=== PATIENT | male | born 1960 | race Two or more races ===

== ENCOUNTER → 2022-05-16 07:50 | Outpatient (BNVA) | payer MEDICARE, MEDICAID, SELFPAY | PROVIDERS: PCP Internal Medicine; Visit Provider Internal Medicine Rheumatology | DX: M17.11 Unilateral primary osteoarthritis, right knee (principal); M25.561 Pain in right knee; M77.11 Lateral epicondylitis, right elbow; R20.0 Anesthesia of skin | CPT/HCPCS: 99202 ==

== ENCOUNTER 2022-09-19 09:04 | Outpatient (REF) | payer MEDICARE, MEDICAID, SELFPAY ==
--- NOTE | ~2022-09-19 | XR_ITS ---
EXAMINATION: XR HAND, BILATERAL CLINICAL INFORMATION: Anesthesia of skin COMPARISON: None. TECHNIQUE: 3 views of each hand FINDINGS: RIGHT: Bone alignment is normal. No fracture or dislocation. Arthritis at the 1st RETIREMENT and trapezoid trapezium scaphoid joints. Periarticular osteopenia. Normal soft tissues. LEFT: Bone alignment is normal. No fracture or dislocation. Arthritis at the trapezoid trapezium scaphoid and 1st RETIREMENT joints. Small cysts in the carpal bones and ulnar styloid. Periarticular osteopenia. Normal soft tissues. XR/XR hand LT 2V IMPRESSION: Bilateral arthritis and periarticular osteopenia. Cysts in the left carpal bones. Inflammatory arthritis should be considered.
--- NOTE | ~2022-09-19 | XR_ITS ---
EXAMINATION: XR HAND, BILATERAL CLINICAL INFORMATION: Anesthesia of skin COMPARISON: None. TECHNIQUE: 3 views of each hand FINDINGS: RIGHT: Bone alignment is normal. No fracture or dislocation. Arthritis at the 1st PRISON and trapezoid trapezium scaphoid joints. Periarticular osteopenia. Normal soft tissues. LEFT: Bone alignment is normal. No fracture or dislocation. Arthritis at the trapezoid trapezium scaphoid and 1st PRISON joints. Small cysts in the carpal bones and ulnar styloid. Periarticular osteopenia. Normal soft tissues. XR/XR hand RT 2V IMPRESSION: Bilateral arthritis and periarticular osteopenia. Cysts in the left carpal bones. Inflammatory arthritis should be considered.
--- NOTE | ~2022-09-19 | XR_ITS ---
EXAMINATION: XR CERVICAL SPINE CLINICAL INFORMATION: Neck pain COMPARISON: None available. TECHNIQUE: 6 views of the cervical spine, inclusive of bilateral oblique and swimmer's views, were obtained. FINDINGS: Bone alignment is normal. No fracture or dislocation. Degenerative spondylosis and degenerative disc disease at C5-C6 and C6-C7. Right-sided neuroforaminal narrowing at C4-C5, C5-C6 and C6-C7. Left-sided neuroforaminal narrowing at C5-C6 and C6-C7. Normal prevertebral soft tissues. XR/XR cervical spine min 6V IMPRESSION: Degenerative changes.
== END 2022-09-19 09:05 | disposition home or self-care (01) ==
LOC: HO.XRAY 09:04
PROVIDERS: PCP Internal Medicine; Visit Provider Nurse Practitioner Family
DX: R20.0 Anesthesia of skin (principal); M47.812 Spondylosis without myelopathy or radiculopathy, cervical region; M54.2 Cervicalgia
CPT/HCPCS: 72052; 73120; 99202

== ENCOUNTER 2022-11-07 11:35 | Outpatient (REF) | payer MEDICARE, MEDICAID, SELFPAY ==
--- NOTE | 2022-11-07 08:45 | EMG_ITS ---
Left median and ulnar motor and sensory studies were performed. Left radial sensory study was performed and paraspinal muscles were tested with a needle. IMPRESSION: 1. Mild left median neuropathy across carpal tunnel. 2. Mild left ulnar neuropathy across cubital tunnel. MD REDDY Zamorano/ROSALINDA / [id number] MTDD
== END 2022-11-07 11:36 | disposition home or self-care (01) ==
LOC: HO.NEURO 11:35
PROVIDERS: PCP Internal Medicine; Visit Provider Nurse Practitioner Family
DX: R20.0 Anesthesia of skin (principal); G62.9 Polyneuropathy, unspecified
CPT/HCPCS: 95886; 95909

== ENCOUNTER 2023-02-06 08:06 | Outpatient (AMB) | payer MEDICARE, MEDICAID, SELFPAY ==
--- NOTE | 2023-02-06 08:17 | A.OFFVIS_ITS ---
Intake Vital Signs 02/06/23 08:31 Height 5 ft 11 in Weight 104 lb 9 oz BMI 14.6 BP 120/76 Blood Pressure Location Rt brachial Position Sitting Pulse 68 Temp 97.2 F Temp Source Skin Pulse Oximetry (%) 97 Oxygen Delivery Method Room Air Intake Visit Reasons: Bl Hand pain Intake Note: New patient here for graham hand pain. Using wrist braces at night. No prior rheumatology vists. 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 I had seen him last in May. He eventually had nerve conduction studies done in October. The data from Neurology indicates the left upper extremity was studied and he concurs with that. However the conclusion was that he had right carpal tunnel and right ulnar neuropathy. We are trying to find out if the studies were mixed up or the patient's recollection is inaccurate. He did have a lateral epicondylar injection in the right elbow last summer. That did seem to help somewhat but he still having some elbow pain on the right. Most of this pain now seems to be on the medial of the elbow.. 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 The knees are not bothering him that much currently. [facility] Medical History Chronic pain of right knee Depression Essential hypertension Glaucoma Surgical History Hx of colonoscopy Family History (Updated 02/06/23 @ 08:34 by MELIA Stoddard) Sister Diabetes Arthritis Brother Arthritis Mother Breast cancer Father No problems noted. 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 Denis/Lymph Details: Negative for excessive bruising or bleeding. Physical Exam Vital Signs: Last Vital Signs Temp 97.2 F 02/06/23 08:31 Pulse 68 02/06/23 08:31 BP 120/76 02/06/23 08:31 Pulse Ox 97 02/06/23 08:31 Oxygen Delivery Method Room Air 02/06/23 08:31 BMI result Body Mass Index 14.6 APPEARANCE: Patient in no acute distress EXTREMITIES: No edema, no calf tenderness, normal peripheral pulses. JOINT EXAM: Cervical Spine:.? Some decrease in the full range of motion but no pain or tenderness. Thoracic Spine:.? No scoliosis.? No tenderness on palpation. Lumbar Spine:.? Alignment normal.? Mild pain with extremes of flexion.? No tenderness. Chest Wall:.? No tenderness, swelling, increased warmth or erythema. Hands:.? Normal pain-free range of motion without tenderness, swelling, increased warmth or erythema.? No flexor tendon triggering, thenar atrophy or sensory loss. Wrists:.? Normal pain-free range of motion without tenderness, swelling, increas ed warmth or erythema.? Positive Phalen's test bilaterally. Elbows:? Right:? Mild pain with extremes of normal flexion and attempts at full extension.? He lacks about 5 degrees of full extension.? There is no tenderness or swelling over the joint space. He does have some mild tenderness on the medial epicondyle and minimal if any tenderness over the lateral epicondyle.? Left:? Normal pain-free range of motion without tenderness, swelling, increased warmth or erythema. Shoulders:.?? Full range of motion with slight posterior discomfort at the extremes of normal range of motion. No tenderness, weakness, swelling, increased warmth or erythema. Hips:.? Full range of motion without pain. Hip bursa:.? No tenderness. Knees:.?? Right:? Mild patellofemoral crepitus and pain at the extremes of normal flexion extension.? Mild to moderate medial compartment tenderness without effusion, redness or warmth.? Left:? Mild patellofemoral crepitus but pain-free range of motion.? There is some slight medial tenderness without effusion, soft tissue swelling, increased warmth or erythema.? Ankles:.? Normal pain-free range of motion without tenderness, swelling, increased warmth or erythema. Feet:.? Normal pain-free range of motion without tenderness, swelling, increased warmth or erythema. Tender points:.? No tenderness to digital palpation at the occiput, trapezius, second rib, lateral epicondyle, knees, greater trochanter and gluteal area bilaterally. Office Procedures Joint Injection/Drain Joint Injection/Drain Injected: 40 mg of, Kenalog, with 0.5 mL of and 1% plain lidocaine Coding Details: The right medial elbow region was prepped with ChloraPrep and alcohol. Under a topical ethyl chloride spray the medial epicondylar region was injected with 40 mg of triamcinolone and 0.5 cc of 1% lidocaine. The patient tolerated the procedure without any acute adverse effects. Additional procedure code (CPT) needed Results Reviewed Results Reviewed: [place] [id number] XRay Report Signed Patient: Hussein Tarango MR#: [id number] : 1960 Acct:[id number] Age/Sex: 62 / M ADM Date: 09/19/[address]: Raegan WATERMAN Ordering Physician: Raegan Rankin Date of Service: 09/19/22 Procedure(s): XR hand RT 2V Accession Number(s): [id number] cc: Raegan Rankin~ EXAMINATION: XR HAND, BILATERAL CLINICAL INFORMATION: Anesthesia of skin? COMPARISON: None.? TECHNIQUE: 3 views of each hand? FINDINGS: RIGHT: Bone alignment is normal. No fracture or dislocation. Arthritis at the 1st GROUP HOME and trapezoid trapezium scaphoid joints. Periarticular osteopenia. Normal soft tissues. LEFT: Bone alignment is normal. No fracture or dislocation. Arthritis at the trapezoid trapezium scaphoid and 1st GROUP HOME joints. Small cysts in the carpal bones and ulnar styloid. Periarticular osteopenia. Normal soft tissues.? XR/XR hand RT 2V IMPRESSION: Bilateral arthritis and periarticular osteopenia. Cysts in the left carpal bones. Inflammatory arthritis should be considered.? Dictated By: Nancy Troy MD [facility] MEDICAL Imaging Result Report Patient: Hussein Tarango Date of Service: 08/14/21 ? ? Patient Gender: Male Ordering Provider: Luis Jimenez : 1960 ? ? ? Final X-RAY EXAM OF ELBOW, COMPLETE Exam Date: 08/14/2021 3:29 PM Ordering Diagnosis: Right elbow pain ? HISTORY: elbow pain chronic ? TECHNIQUE: 3 viewsof the right elbow ? COMPARISON: Right elbow radiograph from 12/15/2019 ? FINDINGS: The elbow joint is well maintained. No fracture or dislocation is seen. There is no joint effusion present. Soft tissues are unremarkable. ? IMPRESSION IMPRESSION: No fracture or dislocation of the right elbow. ? Reading Radiologist: Electronically signed by: Robbin Horvath MD o Assessment & Plan Assessment & Plan (1) Medial epicondylitis, right elbow: Code(s): M77.01 - Medial epicondylitis, right elbow (2) Osteoarthritis of hands, bilateral: Comment: mostly at thumbs Code(s): M19.041 - Primary osteoarthritis, right hand; M19.042 - Primary osteoarthritis, left hand (3) Bilateral hand numbness: Comment: 09/2022 EMG: mild ulnar and median neuropathy - quesrion whether the right arm or left arm was studied Code(s): R20.0 - Anesthesia of skin Plan Today the symptoms at the elbow look more like a right medial epicondylitis. Local corticosteroid injection there is an option. We reviewed potential side effects with such injection. He tolerated the lateral epicondylar injection last year without any difficulty.The right medial elbow region was prepped with ChloraPrep and alcohol. Under a topical ethyl chloride spray the medial epicondylar region was injected with 40 mg of triamcinolone and 0.5 cc of 1% lidocaine. The patient tolerated the procedure without any acute adverse effects. He will see how this works out. He could also pursue a surgical treatment if symptoms do not improve. He seems to have bilateral hand numbness. I cannot really interpret the nerve conduction studies. The data from the office indicates they studied the left upper extremity but the conclusion was that he had right carpal tunnel and cubital tunnel neuropathies.. We will try to clarify this. Additional treatment for the hand numbness may include surgical treatment either cubital tunnel release and/or carpal tunnel release depending on electrical studies. He will get back to us if the numbness symptoms continue to bother him. He may need repeat nerve conduction studies to clarify the findings. Orders: Orders AMB Joint Injection/Aspiration Today M77.01 - Medial epicondylitis, right elbow Coding Level of Care Code Est Pt Level 3 (46195) Diagnoses Medial epicondylitis, right elbow M77.01 Osteoarthritis of hands, bilateral M19.041; M19.042 Bilateral hand numbness R20.0
[2023-02-06 08:31] VITALS: BP 120/76; PULSE 68; TEMP 36.2; O2SAT 97; BMI 14.6
== END 2023-02-06 09:15 | disposition home or self-care (01) ==
PROVIDERS: PCP Internal Medicine; Visit Provider Internal Medicine Rheumatology
DX: M77.01 Medial epicondylitis, right elbow (principal); M19.041 Primary osteoarthritis, right hand; M19.042 Primary osteoarthritis, left hand; R20.0 Anesthesia of skin
CPT/HCPCS: 99213

== ENCOUNTER → 2023-02-06 08:06 | Outpatient (BNVA) | payer MEDICARE, MEDICAID, SELFPAY | PROVIDERS: PCP Internal Medicine; Visit Provider Internal Medicine Rheumatology | DX: M77.01 Medial epicondylitis, right elbow (principal); M19.041 Primary osteoarthritis, right hand; M19.042 Primary osteoarthritis, left hand; R20.0 Anesthesia of skin | CPT/HCPCS: 20605; 99212 ==

== ENCOUNTER 2023-03-26 09:18 | Outpatient (AMB) | payer MEDICARE, MEDICAID, SELFPAY ==
--- NOTE | 2023-03-26 09:28 | MHC.OFFVIS ---
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 States he has been experiencing numbness and tingling for the la st 3 months. States its worse at night and with gripping movement. States he was seen with his PCP who Rx'd him brace and seems to help a little. Reports his left is worse than his right at the moment. Denies O.T or past injection in hands. No EMG done. Allergies No Known Allergies Allergy (Verified 03/26/23 09:34) Medication List - Last Reconciled 03/26/23 by Marcia Gaston MD arm brace (Wrist Brace Medium) As directed atorvastatin 20 mg PO DAILY docusate sodium 100 mg PO DAILY escitalopram oxalate 10 mg PO DAILY gabapentin 300 mg PO BEDTIME 30 days hydrochlorothiazide 25 mg PO DAILY omeprazole 40 mg PO DAILY quetiapine 25 mg PO BEDTIME risperidone 3 mg PO QAM timolol maleate 0.5% 0 drps ophthalmic (eye) HPI HPI Comments History of Present Illness Details Patient has seen Dr. Hatch recently for elbow pain. Received injection which helped. Question of CTS. EMG was done by Dr. Keen last October, read as mild left CTS and left UNE. On my review of data, there is normal median motor latency and amplitude and only mildly slow CV. Patient complains more of numbness than pain, on most 2nd-4th fingers, especially when driving or holding his will. Since he has been wearing night splints, it has improved. Left is worse. Has not noticed atrophy. [facility] Medical History (Updated 03/26/23 @ 10:03 by Marcia Gaston MD) Carpal tunnel syndrome on both sides Chronic pain of right knee Glaucoma Essential hypertension Depression Surgical History Hx of colonoscopy Family History (Updated 02/06/23 @ 08:34 by MELIA Stoddard) Sister Diabetes Arthritis Brother Arthritis Mother Breast cancer Father No problems noted. 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 MSK: Inspection reveals appropriate head and neck positioning. No pain with palpation over the neck musculature. Cervical ROM was full. Spurling's sign negative. Bilateral shoulder ROM WNL. No ligamentous laxity or crepitance. No increased effusion. Hawkin's test is negative. No intrinsic hand weakness noted. No atrophy noted. Jaylyn test negative. Carpal compression test positive bilateral. Tinel sign negative. Strength is 5/5 in all muscle groups tested. No increased tone noted. Neurological: Neurologic examination of the upper and lower extremities was nonfocal with intact sensation, muscle stretch reflexes and without focal motor deficits . Ramey?s negative bilaterally. Gait is non-antalgic without loss of balance. Results Reviewed Results Reviewed: I independently reviewed the results of the following: EMG as discussed above I reviewed records from the following: Rheumatology Assessment & Plan Assessment & Plan (1) Carpal tunnel syndrome on both sides: Code(s): G56.03 - Carpal tunnel syndrome, bilateral upper limbs Plan Clinical diagnosis of CTS bilateral. EMG last May documented at least mild left CTS. Wrist splints help. Continue with wrist splints. Watch out for development of pain or atrophy. Would recommend repeat EMG 6 months after last if worsening. Assessment and plan discussed with patient, and patient was agreeable. All questions were answered thoroughly. Marcia Gaston MD, GILDARDO Board Certified, [place] Board of Physical Medicine and Rehabilitation (ABPMR) Board Certified, [place] Board of Electrodiagnostic Medicine (ABEM) Coding Level of Care Code New Pt Level 3 (44712) Diagnoses Carpal tunnel syndrome on both sides G56.03
[2023-03-26 09:33] VITALS: BMI 28.4
== END 2023-03-26 09:57 | disposition home or self-care (01) ==
PROVIDERS: PCP Internal Medicine; Visit Provider Physical Medicine & Rehabilitation
DX: G56.03 Carpal tunnel syndrome, bilateral upper limbs (principal)
CPT/HCPCS: 99203

== ENCOUNTER → 2023-03-26 09:18 | Outpatient (BNVA) | payer MEDICARE, MEDICAID, SELFPAY | PROVIDERS: PCP Internal Medicine; Visit Provider Physical Medicine & Rehabilitation ==

== ENCOUNTER 2024-04-03 13:12 | Outpatient (AMB) | payer MEDICARE, MEDICAID, SELFPAY ==
--- NOTE | 2024-04-03 13:14 | MHC.OFFWIV ---
Intake Vital Signs 04/03/24 13:16 Height 5 ft 11 in Weight 235 lb BMI 32.8 BP 136/86 Blood Pressure Location Lt brachial Position Sitting Pulse 114 H Pulse Source Pulse Oximeter Temp 98.8 F Temp Source Oral Pulse Oximetry (%) 94 Oxygen Delivery Method Room Air Intake Visit Reasons: EP-Lt foot sore Intake Note: Pt is here today c/o Lt foot sore ?ingrown fingernail Patient Tobacco Use Status: Never used Tobacco Allergies No Known Allergies Allergy (Verified 04/03/24 13:16) HPI HPI Comments History of Present Illness Details He presents to office with a few days of L foot/toe He said pain to L top of foot and 1-3 digits He has had nails cut by podiatry in past which helps but unable to cut toes himself Worse with walking No soaks or medicine used for relief No fever or chills Pain level at rest is minimal slight States that he has diabetes (doesn't check sugars) with hx of neuropathy He said no longer taking gabapentin (he said made him out of it) [facility] Medical History (Updated 04/03/24 @ 13:46 by Laura Machado PA-C) Carpal tunnel syndrome on both sides Chronic pain of right knee Glaucoma Essential hypertension Depression Surgical History Hx of colonoscopy Family History (Updated 02/06/23 @ 08:34 by MELIA Cisneros) Sister Diabetes Arthritis Brother Arthritis Mother Breast cancer Father No problems noted. 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 Speaking full sentences. Skin: Warm dry throughout. Minimal edema to dorsal aspect L foot near distal 1-3 metatarsal bones. No erythema or ecchymosis No FB to plantar aspect of foot Long toe nails noted to digits 1-3 L foot. No digit erythema or edema noted Respiratory: No respiratory distress Cardiac: DP pulse intact L foot MSK:+ tenderness to palpation dorsal aspect L foot along distal 1-3 metatarsal bones. Slight ttp L 3rd digit on foot. + movement all digits L foot Neurology: A/O. No aphasia or facial droop. Gait without abnormality Psych: Good mood and affect Assessment & Plan Assessment & Plan (1) Nail overgrowth: Code(s): L60.2 - Onychogryphosis Plan: podiatry referral provided. No nail trimmers in office (2) Foot pain, left: Code(s): M79.672 - Pain in left foot Plan: no fb seen Pt declined xray as no hx trauma and low concern fx Prednisone for inflammation, MLD arthritis flare Avoid alcohol, nsaids with medicine F/u pcp and pdoatry Pt gave verbal understanding and had no additional questions or concerns at this time Orders: Referrals Podiatry Referral L60.2 - Onychogryphosis Medications: New prednisone 40 mg (2 x 20 mg) PO DAILY 8 tabs 0RF 4 days Coding Level of Care Code Est Pt Level 3 (40416) Diagnoses Nail overgrowth L60.2 Foot pain, left M79.672
[2024-04-03 13:16] VITALS: BP 136/86; PULSE 114; TEMP 37.1; O2SAT 94; BMI 32.8
== END 2024-04-03 13:41 | disposition home or self-care (01) ==
PROVIDERS: PCP Internal Medicine; Visit Provider Physician Assistant
DX: L60.2 Onychogryphosis (principal); M79.672 Pain in left foot

== ENCOUNTER → 2024-04-03 13:12 | Outpatient (BNVA) | payer MEDICARE, MEDICAID, SELFPAY | PROVIDERS: PCP Internal Medicine; Visit Provider Physician Assistant | DX: L60.2 Onychogryphosis (principal); M79.672 Pain in left foot | CPT/HCPCS: 99212 ==

== ENCOUNTER 2024-07-28 08:00 | Outpatient (AMB) | payer MEDICARE, MEDICAID, SELFPAY ==
--- OUTSIDE RECORDS SUMMARY | 2024-07-28 08:02 | XMS_ITS | Clinical Summary ---
Author Organization [facility] Address [address] [place] [address] Care Team Providers Care Consultant Name Role Phone GibsonBernice CARLOS Primary Care Provider [phone] Source Comments PLEASE NOTE, if this patient is a minor, it may be UNLAWFUL to discuss sensitive information that is contained in these records (such as FAMILY PLANNING, MENTAL HEALTH or SUBSTANCE ABUSE) with the minor patient's parent or other person without the patient's specific authorization.[facility] Allergies No known active allergies Medications risperiDONE (RISPERDAL) 3 mg tablet Take 3 mg by mouth every evening. Active timolol (BETIMOL) 0.5 % ophthalmic solution 1 Drop 2 (two) times daily. Active Fenofibrate Nanocrystallized (TRICOR) 48 mg tabIndications:High triglycerides Take 1 Tab by mouth once daily. 30 Tab 3 04/19/20 14 Active diclofenac (VOLTAREN) 75 mg TAKE 1 TABLET BY MOUTH TWICE A DAY 60 Tab 3 07/20/19 15 Active triamterene-hydrochl orothiazide (DYAZIDE) 37.5-25 mg per capsule TAKE 1 CAPSULE BY MOUTH EVERY MORNING FOR HYPERTENSION 30 Cap 3 07/20/19 15 Active atorvastatin (LIPITOR) 20 mg tabletIndications:HL D (hyperlipidemia) Take 1 Tab by mouth once daily. 30 Tab 2 11/01/19 15 Active Active Problems Problem Noted Date Diagnosed Date Elevated liver enzymes 07/20/2014 High triglycerides 04/19/2014 Seasonal allergic conjunctivitis 11/30/2013 Residual type schizophrenic disorder, in remissi on 09/07/2013 HTN (hypertension) 09/07/2013 HLD (hyperlipidemia) 09/07/2013 Glaucoma (increased eye pressure) 09/07/2013 Family History Medical History Relation Name Comments Arthritis Mother step mom Asthma Mother step mom Cancer Mother step mom breast Heart Problems Mother step mom Stroke Mother step mom Relation Name Status Comments Mother step mom Alive Social History Tobacco Use Types Packs/Day Years Used Date Smoking Tobacco: Never Smokeless Tobacco: Never Alcohol Use Standard Drinks/Week Comments Yes 0 (1 standard drink = 0.6 oz pur e alcohol) beer, once every two month 3-4 Sex and Gender Information Value Date Recorded Sex Assigned at Not on file Legal Sex Male 12:37 PM PST Gender Identity Not on file Sexual Orientation Not on file Last Filed Vital Signs Vital Sign Reading Time Taken Comments Blood Pressure 118/79 08/23/2014 10:49 AM EDT Pulse 68 08/23/2014 10:49 AM EDT Temperature 36 ??C (96.8 ??F) 08/23/2014 10:49 AM EDT Respiratory Rate 18 08/23/2014 10:49 AM EDT Oxygen Saturation - - Inhaled Oxygen Concentration - - Weight 97.5 kg (215 lb) 09/28/2014 10:54 AM EDT Height 180.3 cm (5' 11 ) 09/28/2014 10:54 AM EDT Body Mass Index 29.99 09/28/2014 10:54 AM EDT Plan of Treatment Not on file Insurance [place] Member Subscriber Plan / Payer (Ef fective 2013-Present) Name:Hussein Tarango Relation to Subscriber:Self Name:Hussein Tarango Payer ID:[id number] Group ID:Not on file Type:Medicaid Address: [address] [address] [place]ARE - [place] Care Teams Consultant Relationship Specialty Start Date End Date Bernice Gibson NP [phone] [place] [address] PCP - General Internal Medicine 11/22/14
--- OUTSIDE RECORDS SUMMARY | 2024-07-28 08:02 | XMS_ITS | Clinical Summary ---
Author Organization [address] [facility] Address [address] [place] [address] Phone Care Team Providers Care Marble Cleaner Name Role Phone Luis Jimenez MD Primary Care Provider [phone] Allergies No known active allergies Medications acetaminophen (TYLENOL) 500 mg tablet TAKE 2 TABLETS BY MOUTH 3 TIMES DAILY NEEDED FOR PAIN. 1 Active atorvastatin (LIPITOR) 20 mg tablet TAKE 1 TABLET BY MOUTH AT BEDTIME. 4 Active diclofenac (VOLTAREN) 1 % topical gel APPLY 4 G TOPICALLY 4 TIMES A DAY 4 Active docusate sodium (COLACE) 100 mg capsule TAKE 1 CAPSULE BY MOUTH EVERY DAY 4 Active hydroCHLOROthia zide (HYDRODIURIL) 25 mg tablet TAKE 1 TABLET BY MOUTH EVERY DAY 4 Active omeprazole (PriLOSEC) [address] capsule TAKE 1 CAPSULE BY MOUTH EVERY DAY 4 Active risperiDONE (RisperDAL) 3 mg tablet Take 1 Tablet by mouth daily. 3 Active timolol (TIMOPTIC) 0.25 % ophthalmic solution 1 gtt ou bid Active doxycycline (ADOXA) 100 mg tablet Take 1 Tablet by mouth 2 times daily for 7 days. Active Active Problems Problem Noted Date Diagnosed Date Depression 04/13/2024 Essential hypertension, benign 04/13/2024 Glaucoma 04/13/2024 High cholesterol 04/13/2024 Controlled type 2 diabetes m ellitus without complication, without long-term current use of insulin 09/30/2023 Gastroesophageal reflux disease without esophagi tis 09/30/2023 Obese 12/10/2010 Encounters Date Type Department Care Team Description 05/20/2024 2:45 PM EST Office Visit Orthopedic Surgery - [place] [address] [place] [id number] Alexi Valdez DPM Controlled type 2 diabetes with neuropathy (CMS/HCC) (Primary Dx); Pain in toes of both feet; Hammertoes of both feet; Dermatophytosis, nail from Last 3 Months Immunizations Name Administration Dates Next Due Influenza Quadravalent, MDCK , 0.5ml, preservative free (Flucelvax) 6mo and older 03/14/2023,08/14/2021 Influenza trivalent, 0.5mL, preservative free (Fluarix; FluLaval; Fluzone) ages 6mo and older (Afluria) 3 years and older 03/02/2019,04/19/2018,02/20/2016,2014,02/22/2013,06/30/2012,06/14/2011,1 06/24/2009 Tdap Tetanus diptheria acell ular pertussis (Boostrix; Adacel) 7yo and older 11/15/2011 Zoster recombinant (Shingrix ) 19yo and older 05/06/2020 Surgical History Surgery Date Site/Laterality Comments COLONOSCOPY 2012 PROCEDURE: HI COLONOSCOPY FLX DX W/COLLJ SPEC WHEN PFRMD; COMMENT: normal OTHER SURGICAL HISTORY ?2007 PROCEDURE: HI EXPLORATORY LAPAROTOMY CELIOTOMY W/WO BIOPSY SPX; COMMENT: spleen injury Medical History Medical History Date Comments Glaucoma DX:Glaucoma Essential hypertension, benign D X:Essential hypertension, benign High cholesterol DX:High cholest marco antonio Depression DX:Depression Obese 12/10/2010 DX:Obese Family History Medical History Relation Name Comments Diabetes Sister 1 Relation Name Status Comments Sister 1 Sister 2 Social History Tobacco Use Types Packs/Day Years Used Date Smoking Tobacco: Never Smokeless Tobacco: Never Alcohol Use Standard Drinks/Week Comments Yes 0 (1 standard drink = 0.6 oz pur e alcohol) Sex and Gender Information Value Date Recorded Sex Assigned at Not on file Legal Sex Male 12:31 PM EST Gender Identity Not on file Sexual Orientation Not on file Obstetrics History Last Filed Vital Signs Vital Sign Reading Time Taken Comments Blood Pressure 112/78 04/06/2024 2:54 PM EDT Pulse 88 04/06/2024 2:54 PM EDT Temperature - - Respiratory Rate - - Oxygen Saturation - - Inhaled Oxygen Concentration - - Weight 107 kg (236 lb) 05/20/2024 1:55 PM EST Height 182.9 cm (6') 04/12/2024 10:59 AM EDT Body Mass Index 32.01 04/12/2024 10:59 AM EDT Plan of Treatment Upcoming Encounters Date Type Department Care Team (Late st Contact Info) Description 09/02/2024 2:45 PM EDT Office Visit Orthopedic Surgery - [place] [id number] [phone] Alexi Valdez DPM [address] [address] 10/19/2024 3:45 PM EDT Office Visit Adult Medicine [facility] [address] [place] [address] Luis Jimenez MD [address] [place] [id number] Health Maintenance Due Date Last Done Comments Pneumococcal Vaccine: Pediatrics (0 to 5 Years) and At-Risk Patients (6 to 64 Years) (1 of 2 - PCV) 1966 RSV Immunization Patients 60+ Years Old (1 - Risk 60-74 years 1-dose series) 2020 DTaP,Tdap,and Td Vaccines (2 - Td or Tdap) 11/14/2021 11/15/2011 Colorectal Cancer Screening: Colonoscopy 05/25/2022 Depression Screening 05/25/2022 HIV Screening 05/25/2022 Medicare Annual Wellness Visit 05/25/2022 Social Influencers of Health Screening 05/25/2022 Diabetes: Annual Retina Eye Exam 07/23/2024 07/23/2023 Diabetes: Annual Urine Albumin-Creatinine Ratio (uACR) 09/29/2024 09/30/2023 Diabetes: Blood Sugar Control Test (HGBA1C) 10/05/2024 04/06/2024, 04/06/2024 Diabetes: Annual Foot Exam 04/06/2025 04/06/2024 Diabetes: Annual GFR (Glomerular Filtration Rate) 04/06/2025 04/06/2024, 04/06/2024 Hypertension/CHF/CAD Annual BMP Blood Test 04/06/2025 04/06/2024, 04/06/2024 Cholesterol Screening (Lipid Panel) 04/06/2029 04/06/2024, 04/06/2024 Hepatitis C Screening Completed 05/24/2016 Zoster Vaccines Completed 07/15/2020, 05/06/2020 COVID-19 Vaccine Completed 02/21/2024, 11/2021, 09/24/2020 Influenza Vaccine Completed 02/21/2024, , 08/14/2021, Additional history exists HIB Vaccines Aged Out No longer eligi ble based on patient's age to complete this topic HPV Vaccines Aged Out No longer eligi ble based on patient's age to complete this topic Hepatitis A Vaccines Aged Out No long er eligible based on patient's age to complete this topic Hepatitis B Vaccines Aged Out No long er eligible based on patient's age to complete this topic IPV Vaccines Aged Out No longer eligi ble based on patient's age to complete this topic MMR Vaccines Aged Out No longer eligi ble based on patient's age to complete this topic Meningococcal ACWY Vaccine Aged Out N o longer eligible based on patient's age to complete this topic RSV Immunization Patients Under 20 months Aged Out No longer eligible based on patient's age to complete this topic Varicella Vaccines Aged Out No longer eligible based on patient's age to complete this topic Procedures Procedure Name Priority Date/Time Associated Diagnosis Comments ANNUAL BMP BLOOD TEST Routine 04/06/2024 HEMOGLOBIN A1C Routine 04/06/2024 LIPID PANEL Routine 04/06/2024 DIABETES FOOT EXAM Routine 04/06/2024 URINE ALBUMIN CREATININE RATIO Routine 09/30/2023 DIABETES EYE EXAM Routine 07/23/2023 HEPATITIS C SCREENING Routine 05/24/2016 from Last 3 Months or Most Recently Relevant to Health Maintenance Results * Annual BMP Blood Test (04/06/2024) [facility] Annual BMP Blood Test abstracted Result [facility] HEALTH MAINTENANCE Final Result * Diabetes Foot Exam (04/06/2024) [facility] Diabetes: Annual Foot Exam abstracted Result [facility] hospital HEALTH MAINTENANCE Final Result * (ABNORMAL) Hemoglobin A1c (04/06/2024) [facility] Hemoglobin A1C 7.0(A) <=6.5 % Blood Venous blood specimen / Unknown Result [facility] LAB BLOOD ORDERABLES Sun l Result * (ABNORMAL) Lipid panel (04/06/2024) [facility] LDL/HDL Ratio 5(A) 0 - 4 Triglycerides 201(A) 0 - 150 mg/dL Cholesterol 144 0 - 200 mg/dL HDL 31(A) >=40 mg/dL LDL Cholesterol 73 0 - 100 mg/dL Blood Venous blood specimen / Unknown Result [facility] LAB BLOOD ORDERABLES Sun l Result * Urine Albumin Creatinine Ratio (09/30/2023) [facility] Urine Albumin Creatinine Ratio abstracted Result [facility] HEALTH MAINTENANCE Final Result * Diabetes Eye Exam (07/23/2023) [facility] Diabetes: Annual Retina Eye Exam absstracted Result [facility] HEALTH MAINTENANCE Final Result * Hepatitis C Screening (05/24/2016) [facility] Hepatitis C Screening abstracted Result [facility] HEALTH MAINTENANCE Final Result from Last 3 Months or Most Recently Relevant to Health [place] [id number] MEDICARE MEDICAID - [place] Care Teams Marble Cleaner Relationship Specialty Start Date End Date Luis Jimenez MD [address] [place] [address] [place] [phone] PCP - General 06/28/09
[2024-07-28 08:53] VITALS: BP 126/74; PULSE 83; RESP 18; TEMP 36.3; O2SAT 97; BMI 32.6
--- NOTE | 2024-07-28 08:53 | MHC.OFFWIV ---
Intake Vital Signs 07/28/24 08:53 Height 5 ft 11 in Weight 234 lb BMI 32.6 BP 126/74 Blood Pressure Location Rt brachial Position Sitting Respiration 18 Pulse 83 Pulse Source Pulse Oximeter Temp 97.3 F Temp Source Oral Pulse Oximetry (%) 97 Oxygen Delivery Method Room Air Intake Visit Reasons: EP-lwr back pain & stiffness Intake Note: Pt is here today for a walk in visit. Pt c/o lower back pain and tightness for 2-3 days. Patient Tobacco Use Status: Never used Tobacco Allergies No Known Allergies Allergy (Verified 07/28/24 08:57) HPI HPI Comments History of Present Illness Details He presents t office with back pain x 3 days Denies similar pain in past Located on both sides of back Worse with certain positions Denies trauma or injury No recent fals States he pshes a lot No abdominal pain, urine or bowel complaint aside from slight constipation Last BM was this am Sitting currently it is minimal, laying down makes it worse He tried cold pack without relief No CP or SOB PFSH Medical History (Updated 07/28/24 @ 09:29 by Laura Machado PA-C) Carpal tunnel syndrome on both sides Chronic pain of right knee Glaucoma Essential hypertension Depression Surgical History Hx of colonoscopy Family History (Updated 02/06/23 @ 08:34 by MELIA Cisneros) Sister Diabetes Arthritis Brother Arthritis Mother Breast cancer Father No problems noted. 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- [employer] Review of Systems Const Denies chills, Denies fever(s) and Denies frequent falls ENT Denies nasal congestion Card Denies chest pain and Denies dyspnea Resp Denies cough and Denies dyspnea GI Denies abdominal pain, Denies change in stool character, Reports constipation, Denies diarrhea, Denies nausea and Denies vomiting Denies hematuria, Denies dysuria and Denies urinary incontinence Musc Reports back pain, Denies numbness, Denies radiating pain into limb and Denies tingling Skin/Breast Denies rash Neuro Denies frequent falls, Denies numbness and Denies tingling Physical Exam Vital Signs: Last Vital Signs Temp 97.3 F 07/28/24 08:53 Pulse 83 07/28/24 08:53 Resp 18 07/28/24 08:53 BP 126/74 07/28/24 08:53 Pulse Ox 97 07/28/24 08:53 Oxygen Delivery Method Room Air 07/28/24 08:53 BMI result Body Mass Index 32.6 General: Non-toxic, NAD. Speaking full sentences. Skin: Warm dry throughout. No poterior back or flank ecchyosis or vesicular lesions Respiratory: CTA bilaterally. No wheezes, rales or rhonchi Cardiac: RRR. No murmur Abdominal: No CVAT. BS present x 4. No pulsitile mass. Non-tender. MSK: Diffuse lumbar midline and paravertebral muscles ttp with deep palpation. Negative bilateral straight les raise. Easy sit to stand and ambulate in office. No cervical/thoracic ttp. Neurology: Alert. No aphasia or facial droop. Gait without abnormality Psych: Good mood and affect Assessment & Plan Assessment & Plan (1) Lumbar back pain: Code(s): M54.50 - Low back pain, unspecified Plan: Patient seen and evaluated. No specific midline tenderness or hx of trauma Will cover wirh naproxen prn (he denies kidney abnormality- checked labs but pt braulio pt) Discussed warm compress Avoid heavy lifting/rest F/U with PCP Patient gave verbal understanding and had no additional questions or concerns at time of discharge All questions answered Medications: New naproxen 375 mg PO BID PRN 10 tabs 0RF pain Coding Level of Care Code Est Pt Level 3 (43763) Diagnoses Lumbar back pain M54.50
== END 2024-07-28 09:10 | disposition home or self-care (01) ==
PROVIDERS: PCP Internal Medicine; Visit Provider Physician Assistant
DX: M54.50 Low back pain, unspecified (principal)

== ENCOUNTER → 2024-07-28 08:00 | Outpatient (BNVA) | payer MEDICARE, MEDICAID, SELFPAY | PROVIDERS: PCP Internal Medicine | DX: M54.50 Low back pain, unspecified (principal) | CPT/HCPCS: 99212 ==

== ENCOUNTER 2024-11-03 08:17 | Outpatient (AMB) | payer MEDICARE, MEDICAID, SELFPAY ==
--- NOTE | 2024-11-03 08:49 | MHC.OFFWIV ---
Intake Vital Signs 11/03/24 08:53 Weight 237 lb BP 130/90 H Blood Pressure Location Rt brachial Position Sitting Pulse 87 Pulse Source Pulse Oximeter Pulse Oximetry (%) 98 Oxygen Delivery Method Room Air Intake Visit Reasons: EP Sharp pain/sore RT Foot Intake Note: Patient here for sharp right foot pain that started yesterday. Patient Tobacco Use Status: Never used Tobacco Allergies No Known Allergies Allergy (Verified 11/03/24 08:57) Medication List - Last Reconciled 11/03/24 by Patel Keen MD arm brace (Wrist Brace Medium) As directed atorvastatin 20 mg PO DAILY docusate sodium 100 mg PO DAILY escitalopram oxalate 10 mg PO DAILY gabapentin 300 mg PO BEDTIME 30 days hydrochlorothiazide 25 mg PO DAILY naproxen 375 mg PO BID PRN omeprazole 40 mg PO DAILY quetiapine 25 mg PO BEDTIME risperidone 3 mg PO QAM timolol maleate 0.5% 0 drps ophthalmic (eye) Do you need a note to return to daycare/school/sports/work: Yes HPI EP Sharp pain/sore RT Foot HPI Details History - The patient is a 64-year-old male presenting with pain in the right foot. - The pain began last night but is not a new occurrence; the patient has had previous episodes. - The foot pain is described as severe enough to prevent walking, requiring a visit to the emergency room previously where ibuprofen and rest were advised. - The pain is consistently located on the right side of the foot. 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 - There is a history of hypertension and diabetes mellitus, with acknowledgment of a borderline diabetic state in the past. - Recent blood work has been conducted, though the patient is unaware of the specific results regarding kidney function. Problem List - Gout - Hypertension - Diabetes Mellitus - Foot Pain Patient Instructions - Take indomethacin twice daily, once in the morning with breakfast and once at night. - Take prednisone for three days. - Rest and refrain from work duties until symptoms improve. - Monitor blood sugar levels as prednisone may increase blood glucose. - Return for evaluation if symptoms persist or worsen. 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 - The pain began last night but is not a new occurrence; the patient has had previous episodes. - The foot pain is described as severe enough to prevent walking, requiring a visit to the emergency room previously where ibuprofen and rest were advised. - The pain is consistently located on the right side of the foot. 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 - There is a history of hypertension and diabetes mellitus, with acknowledgment of a borderline diabetic state in the past. - Recent blood work has been conducted, though the patient is unaware of the specific results regarding kidney function. Problem List - Gout - Hypertension - Diabetes Mellitus - Foot Pain Patient Instructions - Take indomethacin twice daily, once in the morning with breakfast and once at night. - Take prednisone for three days. - Rest and refrain from work duties until symptoms improve. - Monitor blood sugar levels as prednisone may increase blood glucose. - Return for evaluation if symptoms persist or worsen. Medications: New indomethacin administer with food or milk 50 mg PO BID 7 days 14 caps 0RF prednisone 20 mg PO DAILY 3 days 3 tabs 0RF Coding Level of Care Code Est Pt Level 4 (15600) Diagnoses Acute gout of right foot, unspecified cause M10.9 Gout etiology: unspecified cause Essential hypertension I10 Borderline diabetes mellitus R73.03
[2024-11-03 08:53] VITALS: BP 130/90; PULSE 87; O2SAT 98
== END 2024-11-03 09:31 | disposition home or self-care (01) ==
PROVIDERS: PCP Internal Medicine; Visit Provider Internal Medicine
DX: M10.9 Gout, unspecified (principal); I10 Essential (primary) hypertension; R73.03 Prediabetes

== ENCOUNTER → 2024-11-03 08:17 | Outpatient (BNVA) | payer MEDICARE, MEDICAID, SELFPAY | PROVIDERS: PCP Internal Medicine; Visit Provider Internal Medicine | DX: M10.9 Gout, unspecified (principal); I10 Essential (primary) hypertension; R73.03 Prediabetes | CPT/HCPCS: 99212 ==

== ENCOUNTER 2024-11-18 07:58 | Outpatient (AMB) | payer MEDICARE, MEDICAID, SELFPAY ==
--- OUTSIDE RECORDS SUMMARY | 2024-11-18 08:01 | XMS_ITS | Clinical Summary ---
Author Organization [facility] Address [address] [place] [address] Care Team Providers Care Hotel Service Supervisor Name Role Phone GibsonBernice CARLOS Primary Care Provider [phone] Source Comments PLEASE NOTE, if this patient [...] Plan of Treatment Not on file Insurance [place] MEDICAID Member Subscriber Plan / Payer (Ef fective 2013-Present) Name:Hussein Tarango Relation to Subscriber:Self Name:Hussein Tarango Payer ID:[id number] Group ID:Not on file Type:Medicaid Address: [address] [address] MEDICARE - [place] Care Teams Hotel Service Supervisor Relationship Specialty Start Date End Date Bernice Gibson NP [phone] [place] [address] PCP - General Internal Medicine 11/22/14
[2024-11-18 08:04] VITALS: BP 142/90; PULSE 81; TEMP 36.9; O2SAT 96; BMI 32.6
--- NOTE | 2024-11-18 08:04 | AM.OFFWIN_ITS ---
Intake Vital Signs 11/18/24 08:04 Height 5 ft 11 in Weight 233 lb 8 oz BMI 32.6 BP 142/90 H Blood Pressure Location Lt brachial Position Sitting Pulse 81 Pulse Source Pulse Oximeter Temp 98.5 F Temp Source Oral Pulse Oximetry (%) 96 Oxygen Delivery Method Room Air Intake Visit Reasons: EP-rt foot sore Intake Note: Pt presents to the office today for pain on the bottom of his foot x3-4 months. Pt denies any injury to his foot. Patient Tobacco Use Status: Never used Tobacco Allergies No Known Allergies Allergy (Verified 11/18/24 08:06) HPI HPI Comments History of Present Illness Details History of Present Illness - The patient is a 64-year-old male pres enting with right foot pain for awhile. - The patient indicates the pain is sore on the bone of the right foot and describes it as both sharp and sore. - The pain intensity is 6 out of 10 and is characterized by sharpness and so reness. - Onset and duration details are less cl ear, but the episode has occurred more frequently than previously documented. - The pain is triggered or exacerbated m ostly by walking and occurs when wearing shoes. There is no associated numbness or tingling. - No significant dietary factors such as high-mercury fish, red meat, or deleon consumption are reported that may influence his gout condition. - The patient denies any recent injuries to the affected area. - Past management for gout included inte rventions with steroid medications and indomethacin. - The patient has not undergone recent l ab testing or radiographic imaging of the affected site. - He denies fever, chills, swelling, inj ury, fall, ankle pain, leg pain, or calf pain. Physical Exam General: Cooperative, healthy appearing, comfortable, no acute distress and well developed Respiratory: Normal respiratory effort and able to speak in complete sentences. Clear to auscultation bilaterally Cardiovascular: Regular rate and rhythm. Normal S1 and S2 Skin: No rashes or lesions noted Neuro: Patient oriented x3. Sensation is intact. Vascular: Pulse are 2+ on the LE. Extremities: FROM of the digits on the right foot and ankle. TTP of the right medial great MTP joint and the metatarsal. No TTP of the other MTP joints, plantar fascia, calcaneous, medial or lateral malleolus on the right. Ambulates with a steady gait. Strength is 5/5 on the LE bilaterally. Patient was informed and verbally consented to the use of an ambient scribe for clinic note documentation during this visit. [facility] Medical History Carpal tunnel syndrome on both sides Chronic pain of right knee Glaucoma Essential hypertension Depression Surgical History Hx of colonoscopy Family History Sister Diabetes Arthritis Brother Arthritis Mother Breast cancer Father No problems noted. 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 IMPRESSION: Degenerative changes of the right foot as described. - Conduct a uric acid level test to determine the presence of hyperuricemia. - will treat for presumed gout. - If findings support gout, deliberate on potential resumption of corticosteroid therapy for symptom management. - Advise reducing red meat intake due to its impact on gout. - Arrange a follow-up appointment post-testing to review results and fine-tune therapeutic strategies. 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 - will need a work note. Orders: Orders XR foot RT min 3V Today M79.671 - Pain in right foot Uric Acid Today M79.671 - Pain in right foot Referrals Podiatry Referral M79.671 - Pain in right foot Medications: New indomethacin administer with food or milk 50 mg PO bid 7 days 14 caps 0RF prednisone See taper instructions 10 mg PO DIRECTED 21 ea 0RF Coding Level of Care Code New Pt Level 4 (77963) Diagnoses Right foot pain M79.671
== END 2024-11-18 09:30 | disposition home or self-care (01) ==
PROVIDERS: PCP Internal Medicine; Visit Provider Physician Assistant Medical
DX: M79.671 Pain in right foot (principal)

== ENCOUNTER 2024-11-18 07:58 | Outpatient (REF) | payer MEDICARE, MEDICAID, SELFPAY ==
--- NOTE | ~2024-11-18 | XR_ITS ---
EXAMINATION: XR FOOT 3 OR MORE VIEWS RIGHT HISTORY: M79.671 - Pain in right foot COMPARISON: There are no prior studies available for comparison. FINDINGS: Three views of the right foot are submitted. Osseous mineralization is normal. There is no fracture or dislocation. There is mild osteoarthritis of the DIP and PIP joints as well as the interphalangeal joint and MCP joint of the great toe. There is a small plantar calcaneal spur. There is calcification of the plantar fascia. XR/XR foot RT min 3V IMPRESSION: Degenerative changes of the right foot as described. Electronically signed by: Neal Ying MD 11/18/2024 09:15 AM EDT
[2024-11-18 14:53] LABS: Uric Acid 8.7 mg/dL (3.4-7.0)
== END 2024-11-18 07:59 | disposition home or self-care (01) ==
LOC: HO.HMGCX 07:58
PROVIDERS: PCP Internal Medicine; Visit Provider Physician Assistant Medical
DX: M79.671 Pain in right foot (principal)
CPT/HCPCS: 36415; 73630; 84550; 99212

== ENCOUNTER → 2024-11-18 08:33 | Outpatient (BNV) | payer MEDICARE, MEDICAID, SELFPAY | PROVIDERS: PCP Internal Medicine; Visit Provider Radiology Diagnostic Radiology | DX: M19.071 Primary osteoarthritis, right ankle and foot (principal) | CPT/HCPCS: 73630 ==

== ENCOUNTER 2025-01-31 08:24 | Outpatient (AMB) | payer MEDICARE, MEDICAID, SELFPAY ==
--- OUTSIDE RECORDS SUMMARY | 2025-01-31 08:46 | XMS_ITS | Clinical Summary ---
Author Organization [facility] Address [address] [place] [address] Care Team Providers Care Packer And Carry Out Name Role Phone GibsonBernice CARLOS Primary Care Provider [phone] Source Comments PLEASE NOTE, if this patient [...] 68 08/23/2014 10:49 AM EDT Temperature 36 C (96.8 F) 08/23/2014 10:49 AM EDT Respiratory Rate 18 08/23/2014 10:49 AM EDT Oxygen Saturation - - Inhaled Oxygen Concentration - - Weight 97.5 kg (215 lb) 09/28/2014 10:54 AM EDT Height 180.3 cm (5' 11 ) 09/28/2014 10:54 AM EDT Body Mass Index 29.99 09/28/2014 10:54 AM EDT Plan of Treatment Not on file Insurance [place] Member Subscriber Plan / Payer (Ef fective 2013-Present) Name:Hussein Tarango Relation to Subscriber:Self Name:Hussein Tarango Payer ID:[id number] Group ID:Not on file Type:Medicaid Address: [address] [address] MEDICARE - [place] Care Teams Packer And Carry Out Relationship Specialty Start Date End Date Bernice Gibson NP [phone] [place] [address] PCP - General Internal Medicine 11/22/14
--- OUTSIDE RECORDS SUMMARY | 2025-01-31 08:46 | XMS_ITS | Clinical Summary ---
Author Organization [facility] [address] [facility] Address [address] [place] [address] Phone Care Team Providers Care Hairspring Assembler Name Role Phone Luis Jimenez MD Primary Care Provider [phone] Allergies No known active allergies Medications acetaminophen (TYLENOL) 500 mg tablet TAKE 2 TABLETS BY MOUTH 3 TIMES DAILY NEEDED FOR PAIN. 05/30/2021 Active diclofenac (VOLTAREN) 1 % topical gel 01/21/2024 Active docusate sodium (COLACE) 100 mg capsule TAKE 1 CAPSULE BY MOUTH EVERY DAY 03/08/2024 Active risperiDONE (RisperDAL) 3 mg tablet Take 1 Tablet by mouth daily. 03/14/2023 Active timolol (TIMOPTIC) 0.25 % ophthalmic solution 1 gtt ou bid Active doxycycline (ADOXA) 100 mg tablet Take 1 Tablet by mouth 2 times daily for 7 days. Active atorvastatin (LIPITOR) 20 mg tablet Take 1 tablet (20 mg total) by mouth at bedtime. at bedtime. 90 tablet 2 10/19/2024 Active hydroCHLOROthia zide (HYDRODIURIL) 25 mg tablet Take 1 tablet (25 mg total) by mouth 1 (one) time each day. 90 tablet 2 10/19/2024 Active cyanocobalamin (VITAMIN B-12) 2,000 mcg tablet Take 1 tablet (2,000 mcg total) by mouth 1 (one) time each day. 90 tablet 1 10/20/2024 Active omeprazole (PriLOSEC) [address] capsule TAKE 1 CAPSULE BY MOUTH EVERY DAY 90 capsule 1 11/11/2024 Active predniSONE (DELTASONE) 20 mg tablet Take 1 tablet (20 mg total) by mouth 2 (two) times a day. 10 tablet 01/23/2025 Active traMADoL (ULTRAM) 50 mg tablet Take 1 tablet (50 mg total) by mouth every 6 (six) hours if needed for severe pain for up to 3 days. Max Daily Amount: 200 mg 12 tablet 01/23/2025 01/27/20 25 Hospital, Clinic, or Other Facility Administered Medication Ordered Dose Route Frequency Start Date End Date Status lidocaine (PF) (XYLOCAINE-MPF) 1 % injection 0.5 mLIndications:Capsulitis of metatarsophalangeal (MTP) joint of right foot .5 mL inj Once PRN Procedure 01/25/2025 5 Ended triamcinolone acetonide (KENALOG-40) 40 mg/mL injection 40 mgIndications:Capsulitis of metatarsophalangeal (MTP) joint of right foot 40 mg IAtc Once PRN Procedure 01/25/2025 5 Ended Active Problems Problem Noted Date Diagnosed Date Depression 04/13/2024 Essential hypertension, benign 04/13/2024 Glaucoma 04/13/2024 High cholesterol 04/13/2024 Controlled type 2 diabetes m ellitus without complication, without long-term current use of insulin ([facility] V24, [facility] V28) 09/30/2023 Gastroesophageal reflux disease without esophagi tis 09/30/2023 Obese 12/10/2010 Encounters Date Type Department Care Team Description 01/25/2025 2:00 PM EDT Office Visit Orth[facility] [place] [address] [place] [phone] Alexi Valdez, BRETT Controlled type 2 diabetes mellitus with diabetic polyneuropathy, without long-term current use of insulin ([facility] V24, [facility] V28) (Primary Dx); PAD (peripheral artery disease) ([facility] V24); Hammertoes of both feet; Capsulitis of metatarsophalangeal (MTP) joint of right foot 01/24/2025 Telephone Adult Medicine [address] [phone] Luis Jimenez MD Hospitalization/ER 01/23/2025 8:08 AM EDT - 01/23/2025 11:23 AM EDT Emergency [facility] Emergency [address] [place] [phone] Rick Koo MD 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, initial encounter (Primary Dx); Closed fracture of sesamoid bone of right foot, initial encounter Discharge Disposition: Home or Self Care 12/15/2024 3:00 PM EDT Ancillary Procedure [facility] [address] [facility] [address] [place] [address] PAD (peripheral artery disease) ([facility] V24) 12/06/2024 2:30 PM EDT Office Visit Orthopedic Surgery - [place] [address] [facility] [address] [place] [phone] Alexi Valdez DPM Controlled type 2 diabetes mellitus with diabetic polyneuropathy, without long-term current use of insulin ([facility] V24, [facility] V28) (Primary Dx); PAD (peripheral artery disease) ([facility] V24); Hammertoes of both feet; Pain in toes of both feet; Callus; Localized edema; Onychomycosis from Last 3 Months Immunizations Name Administration [...] Date Smoking Tobacco: Never Smokeless Tobacco: Never Tobacco Cessation:Counseling Given: Not Answered Alcohol Use Standard Drinks/Week Comments Yes 0 (1 standard drink = 0.6 oz pur e alcohol) Sex and Gender Information Value Date Recorded Sex Assigned at Male 09/24/2024 7:30 AM EDT Legal Sex Male 12:31 PM EST Gender Identity Male 09/24/2024 7:30 AM EDT Sexual Orientation Straight 09/24/2024 7: 30 AM EDT Obstetrics History Last Filed Vital Signs Vital Sign Reading Time Taken Comments Blood Pressure 141/83 01/23/2025 10:21 AM EDT Pulse 68 01/23/2025 10:21 AM EDT Temperature 36.6 C (97.9 F) 01/23/2025 10:21 AM EDT Respiratory Rate 17 01/23/2025 10:21 AM EDT Oxygen Saturation 98% 01/23/2025 10:21 AM EDT Inhaled Oxygen Concentration - - Weight 99.8 kg (220 lb) 01/23/2025 7:56 AM EDT Height 180.3 cm (5' 11 ) 01/23/2025 7:56 AM EDT Body Mass Index 30.68 01/23/2025 7:56 AM EDT Plan of Treatment Upcoming Encounters Date Type Department Care Team (Late st Contact Info) Description 02/07/2025 1:45 PM EDT Office Visit Orthopedic Surgery - [place] [address] [phone] Alexi Valdez, DPLauren 175 [facility] [address] [place] [address] 02/09/2025 2:00 PM EDT Office Visit [address] [phone] China Perez NP [address] [place], [place] 04/29/2025 3:30 PM EST Office Visit Adult Medicine [facility] [address] [place] [phone] Luis Jimenez MD [address] [place] [address] Health Maintenance Due Date Last Done Comments Pneumococcal Vaccine: 50+ Years (1 of 2 - PCV) 1979 RSV Immunization Adult Patients (1 - Risk 60-74 years 1-dose series) 2020 DTaP,Tdap,and Td Vaccines (2 - Td or Tdap) 11/14/2021 11/15/2011 Colorectal Cancer Screening: Colonoscopy 05/25/2022 HIV Screening 05/25/2022 Medicare Annual Wellness Visit 05/25/2022 Social Influencers of Health Screening 05/25/2022 Depression Screening 06/16/2024 Diabetes: Annual Retina Eye Exam 07/23/2024 07/23/2023 Diabetes: Annual Urine Albumin-Creatinine Ratio (uACR) 09/29/2024 09/30/2023 Influenza Vaccine (#1) 2025 , 03/14/2023, 08/14/2021, Additional history exists Diabetes: Annual Foot Exam 04/06/2025 04/06/2024 Diabetes: Blood Sugar Control Test (HGBA1C) 04/21/2025 10/19/2024, 04/06/2024, 04/06/2024 Diabetes: Annual GFR (Glomerular Filtration Rate) 10/19/2025 10/19/2024, 04/06/2024, 04/06/2024 Hypertension/CHF/CAD Annual BMP Blood Test 10/19/2025 10/19/2024, 04/06/2024, 04/06/2024 Cholesterol Screening (Lipid Panel) 10/19/2029 10/19/2024, 04/06/2024, 04/06/2024 Hepatitis C Screening Completed 05/24/2016 Zoster Vaccines Completed 07/15/2020, 05/06/2020 COVID-19 Vaccine Completed 02/21/2024, 11/2021, 09/24/2020 HIB Vaccines Aged Out No longer eligi [...] patient's age to complete this topic Meningococcal B Vaccine Aged Out No l onger eligible based on patient's age to complete this topic RSV Immunization Patients Under 20 months Aged Out No longer eligible based on patient's age to complete this topic Varicella Vaccines Aged Out No longer eligible based on patient's age to complete this topic Procedures Procedure Name Priority Date/Time Associated Diagnosis Comments INJECTION TENDON OR LIGAMENT Routine 01/25/2025 2:00 PM EDT Capsulitis of metatarsophalangeal (MTP) joint of right foot POCT GLUCOSE BLOOD Routine 01/23/2025 9: 32 AM EDT XR FOOT 3+ VIEWS RIGHT STAT 01/23/2025 9:30 AM EDT VAS US DUPLEX LOWER EXT ARTERIES BILAT WITH CHERRIE Routine 12/15/2024 3:36 PM EDT PAD (peripheral artery disease) ([facility] V24) COMPREHENSIVE METABOLIC PANEL Routine 10/19/2024 4:23 PM EDT Controlled type 2 diabetes mellitus without complication, without long-term current use of insulin ([facility] V24, [facility] V28) Essential hypertension, benign Encounter for long-term (current) use of medications HEMOGLOBIN A1C Routine 10/19/2024 4:23 PM EDT Controlled type 2 diabetes mellitus without complication, without long-term current use of insulin ([facility] V24, [facility] V28) LIPID PANEL WITH REFLEX TO DIRECT LDL Routine 10/19/2024 4:23 PM EDT High cholesterol DIABETES FOOT EXAM Routine 04/06/2024 URINE ALBUMIN CREATININE RATIO Routine 09/30/2023 DIABETES EYE EXAM Routine 07/23/2023 HEPATITIS C SCREENING Routine 05/24/2016 from Last 3 Months or Most Recently Relevant to Health Maintenance Results * Injection tendon or ligament (01/25/2025 2:00 PM EDT) Narrative Alexi Valdez DPM - 01/25/2025 2:00 PM EDT Alexi Valdez DPM 01/25/2025 4:48 PM Injection tendon or ligament Indications: pain Details: 25 G needle Medications: 0.5 mL lidocaine (PF) 1 %; 40 mg triamcinolone acetonide 40 mg/mL Informed Consent: Laterality: Right Alexi Valdez DPM IN CLINIC/BEDSIDE ORDERABLE S Edited Result - Final * (ABNORMAL) POCT Glucose, blood (01/23/2025 9:32 AM EDT) Glucose POCT 189(H) 70 - 100 mg/dL 01/23/2025 9:33 AM EDT [facility] Blood Capillary blood specimen / Unknown 01/23/2025 9:32 AM EDT 01/23/2025 9:34 AM EDT us Rick Koo MD LAB POINT OF CARE T EST DOCKED DEVICE UNSOLICITED RESULTS Final Result [facility] [address] [place] [address], [place] [phone] * XR Foot 3+ Views Right (01/23/2025 9:30 AM EDT) Anatomical Region Laterality Modality Lower Extremities, Foot Right [facility] 01/23/2025 9:40 AM EDT Impressions 01/23/2025 9:41 AM EDT No acute findings. -------- FINAL REPORT -------- Dictated By: Saw Graf Dictated Date: 01/23/2025 09:40 ET Assigned Physician: Saw Graf Reviewed and Electronically Signed By: Saw Graf Signed Date: 01/23/2025 09:41 ET Workstation ID: [id number] Transcribed By: Self Edit Transcribed Date: 01/23/2025 09:40 ET Narrative 01/23/2025 9:41 AM EDT PROCEDURE: Radiographs of the right foot. HISTORY: pain. COMPARISON: None. FINDINGS: 3 views of the right foot. The bones appear demineralized. There is no focal bony lesion or fracture. Small plantar and retrocalcaneal spurs. Bipartite medial sesamoid. Dystrophic calcifications of the plantar fascia. Procedure Note Saw Graf MD - 01/23/2025 PROCEDURE: Radiographs of the right foot. HISTORY: pain. COMPARISON: None. FINDINGS: 3 views of the right foot. The bones appear demineralized. There is nofocal bony lesion or fracture. Small plantar and retrocalcaneal spurs.Bipartite medial sesamoid. Dystrophic calcifications of the plantarfascia. IMPRESSION: No acute findings. -------- FINAL REPORT -------- Dictated By: Saw Graf Dictated Date: 01/23/2025 09:40 ET Assigned Physician: Saw Graf Reviewed and Electronically Signed By: Saw Graf Signed Date: 01/23/2025 09:41 ET Workstation ID: [id number] Transcribed By: Self Edit Transcribed Date: 01/23/2025 09:40 ET us Rick Koo MD IMG XR PROCEDURES Final Res ult * Vascular US duplex lower extremity arteries bilateral with CHERRIE (12/15/2024 3:36 PM EDT) Left Dist External Iliac PSV 100 cm/s [facility] Left Prox External Iliac PSV 136 cm/s [facility] Left AT dist sys PSV 52 cm/s [facility] Left AT mid sys PSV 34 cm/s CV [facility] Left AT prox sys PSV 60 cm/s CV VAS LAB Left GEOPHYSICAL COMPUTER prox sys PSV 89 cm/s [facility] Left mid peroneal sys PSV 90 cm/s CV [facility] LAB Left popliteal dist sys PSV 86 cm/s CV V[facility] LAB Left popliteal prox sys PSV 104 cm/s CV V[facility] LAB Left PT dist sys PSV 84 cm/s CV [facility] LAB Left PT mid sys PSV 115 cm/s CV [facility] Left PT prox sys PSV 32 cm/s [facility] Left super femoral dist sys PSV 86 cm/s CV [facility] LAB Left super femoral mid sys PSV 105 cm/s [facility] Left super femoral prox sys PSV 80 cm/s [facility] Right Dist External Iliac PSV 132 cm/s CV [facility] LAB Right Prox External Iliac PSV 119 cm/s CV [facility] Right AT dist sys PSV 93 cm/s CV [facility] LAB Right AT mid sys PSV 98 cm/s CV [facility] LAB Right AT prox sys PSV 29 cm/s CV VAS LAB Right GEOPHYSICAL COMPUTER prox sys PSV 177 cm/s CV VAS LAB Right mid peroneal sys PSV 87 cm/s CV [facility] LAB Right popliteal dist sys PSV 176 cm/s [facility] Right popliteal prox sys PSV 85 cm/s [facility] Right PT dist sys PSV 91 cm/s [facility] Right PT mid sys PSV 114 cm/s CV [facility] LAB Right PT prox sys PSV 114 cm/s [facility] Right super femoral dist sys PSV 106 cm/s [facility] Right super femoral mid sys PSV 85 cm/s [facility] Right super femoral prox sys PSV 123 cm/s [facility] LAB Right profunda sys PSV 230 cm/s [facility] Left profunda sys PSV 175 cm/s [facility] Right arm BP 128 mmHg [facility] Left arm BP 110 mmHg [facility] Right posterior tibial 165 mmHg [facility] Right Dorsalis Pedis 162 mmHg [facility] Right CHERRIE 1.29 [facility] Left posterior tibial 150 mmHg [facility] Left Dorsalis Pedis 105 mmHg [facility] Left CHERRIE 1.17 [facility] Anatomical Region Laterality Modality Vascular, Abdomen Ultrasound Narrative 12/25/2024 1:57 PM EDT Right: CHERRIE 1.29. Normal amplitude PVR waveform with dicrotic notch. Normal amplitude digit PPG waveform. Triphasic flow throughout the right lower extremity. No significant inflow arterial occlusive disease. No significant femoral-popliteal disease, mild popliteal disease Three-vessel runoff in the calf. Left: CHERRIE 1.17. Normal amplitude PVR waveform with dicrotic notch. Normal amplitude digit PPG waveform. Triphasic flow throughout the left lower extremity except for biphasic posterior tibial artery. No significant inflow arterial occlusive disease. No significant femoral-popliteal disease, mild popliteal disease Three-vessel runoff in the calf. Right Lower Arterial Duplex The distal external iliac artery has triphasic flow. The common femoral artery has triphasic flow. The profunda femoris artery has triphasic flow. The superficial femoral artery has triphasic flow. The popliteal artery has triphasic flow. The proximal anterior tibial artery has biphasic flow. The mid anterior tibial artery has triphasic flow. The distal anterior tibial artery has triphasic flow. The posterior tibial artery has triphasic flow. The mid peroneal artery has triphasic flow. Left Lower Arterial Duplex The distal external iliac artery has triphasic flow. The common femoral artery has triphasic flow. The profunda femoris artery has triphasic flow. The superficial femoral artery has triphasic flow. The popliteal artery has triphasic flow. The proximal anterior tibial artery has biphasic flow. The mid anterior tibial artery has biphasic flow. The distal anterior tibial artery has monophasic flow. The posterior tibial artery has triphasic flow. The proximal posterior tibial artery has biphasic flow. The mid posterior tibial artery has triphasic flow. The mid peroneal artery has triphasic flow. Body Welder Details A calhoun scale, color and doppler analysis ultrasound was performed. During the study longitudinal views were obtained. Continuous wave doppler, pulsed wave doppler and pulsed volume recording (PVR) was performed. Overall the study quality was good. us Alexi Valdez DPM CV VASCULAR PROCEDURES Sun l Result * (ABNORMAL) Lipid panel with reflex to direct LDL (10/19/2024 4:23 PM EDT) Cholesterol 138 0 - 200 mg/dL LAB CHEMISTRY METHOD 10/19/2024 7:02 PM EDT [facility] Triglycerides 130 0 - 150 mg/dL LAB CHEMISTRY METHOD 10/19/2024 7:02 PM EDT [facility] HDL 33(L) >=40 mg/dL LAB CHEMISTRY METHOD 10/19/2024 7:02 PM EDT [facility] LDL Calculated 79 0 - 100 mg/dL LAB CHEMISTRY METHOD 10/19/2024 7:02 PM EDT [facility] VLDL Cholesterol Krishan 26 mg/dL LAB CHEMISTRY METHOD 10/19/2024 7:02 PM EDT [facility] Non HDL Chol. (LDL+VLDL) 105 <145 mg/dL LAB CHEMISTRY METHOD 10/19/2024 7:02 PM EDT [facility] Chol/HDL Ratio 4.2 0.0 - 4.4 LAB CHEMISTRY METHOD 10/19/2024 7:02 PM [facility] Blood Venous blood specimen / Unknown Venipuncture / Unknown 10/19/2024 4:23 PM EDT 10/19/2024 4:23 PM EDT us Luis Jimenez MD LAB BLOOD ORDERABLES Final Resu lt [facility] [address] [place] [address], [place] [phone] * (ABNORMAL) Hemoglobin A1c (10/19/2024 4:23 PM EDT) Hemoglobin A1C 7.2(H) <6.5 % LAB CHEMISTRY METHOD 10/20/2024 10:50 AM EDT [facility] Mean Bld Glu Estim. 160 mg/dL LAB CHEMISTRY METHOD 10/20/2024 10:50 AM [facility] Blood Venous blood specimen / Unknown Venipuncture / Unknown 10/19/2024 4:23 PM EDT 10/19/2024 4:23 PM EDT us Luis Jimenez MD LAB BLOOD ORDERABLES Final Resu lt [facility] [address] [place] [address], [place] [phone] * (ABNORMAL) Comprehensive metabolic panel (10/19/2024 4:23 PM EDT) Sodium 134 133 - 145 mmol/L LAB CHEMISTRY METHOD 10/19/2024 7:02 PM [facility] Potassium 3.6 3.5 - 5.5 mmol/L LAB CHEMISTRY METHOD 10/19/2024 7:02 PM [facility] Chloride 98 96 - 110 mmol/L LAB CHEMISTRY METHOD 10/19/2024 7:02 PM [facility] CO2 28 21 - 32 mmol/L LAB CHEMISTRY METHOD 10/19/2024 7:02 PM [facility] Anion Gap 8 3 - 11 LAB CHEMISTRY METHOD 10/19/2024 7:02 PM [facility] Glucose 132(H) 70 - 100 mg/dL LAB CHEMISTRY METHOD 10/19/2024 7:02 PM [facility] BUN 10 5 - 25 mg/dL LAB CHEMISTRY METHOD 10/19/2024 7:02 PM [facility] Creatinine 0.94 0.70 - 1.30 mg/dL LAB CHEMISTRY METHOD 10/19/2024 7:02 PM [facility] eGFR 91 >=60 mL/min/1. 73m2 LAB CHEMISTRY METHOD 10/19/2024 7:02 PM [facility] Comment:Calculation based on the Chronic Kidney Disease Epidemiology Collaboration (CKD-EPI) equation refit without adjustment for race. BUN/Creatinine Ratio 10.6 LAB CHEMISTRY METHOD 10/19/2024 7:02 PM [facility] Calcium 9.1 8.5 - 10.5 mg/dL LAB CHEMISTRY METHOD 10/19/2024 7:02 PM [facility] AST (SGOT) 17 10 - 42 unit/L LAB CHEMISTRY METHOD 10/19/2024 7:02 PM [facility] ALT (SGPT) 30 10 - 60 unit/L LAB CHEMISTRY METHOD 10/19/2024 7:02 PM [facility] Alkaline Phosphatase 260(H) 42 - 121 unit/L LAB CHEMISTRY METHOD 10/19/2024 7:02 PM [facility] Total Protein 7.3 6.0 - 8.0 g/dL LAB CHEMISTRY METHOD 10/19/2024 7:02 PM [facility] Albumin 4.0 3.2 - 5.0 g/dL LAB CHEMISTRY METHOD 10/19/2024 7:02 PM [facility] Total Bilirubin 0.7 0.0 - 1.4 mg/dL LAB CHEMISTRY METHOD 10/19/2024 7:02 PM [facility] Blood Venous blood specimen / Unknown Venipuncture / Unknown 10/19/2024 4:23 PM EDT 10/19/2024 4:23 PM EDT Luis Jimenez MD LAB BLOOD ORDERABLES Final Resu lt [facility] [address] [place] [address], [place] [phone] * Diabetes Foot Exam (04/06/2024) Pathologist [facility] Diabetes: Annual Foot Exam abstracted Historical Provider HEALTH MAINTENANCE Final Result * Urine Albumin Creatinine Ratio (09/30/2023) Pathologist [facility] Urine Albumin Creatinine Ratio abstracted Result [facility] Historical Provider HEALTH MAINTENANCE Final Result * Diabetes Eye Exam (07/23/2023) Pathologist [facility] Diabetes: Annual Retina Eye Exam absstracted Historical Provider HEALTH MAINTENANCE Final Result * Hepatitis C Screening (05/24/2016) Pathologist [facility] Hepatitis C Screening abstracted Historical Provider HEALTH MAINTENANCE Final Result from Last 3 Months or Most Recently Relevant to Health Maintenance Insurance MEDICARE MEDICAID - [place] Care Teams Hairspring Assembler Relationship Specialty Start Date End Date Luis Jimenez MD [address] [place] [id number] PCP - General 06/28/09
[2025-01-31 09:24] VITALS: BP 120/70; PULSE 86; TEMP 36.9; O2SAT 97; BMI 33.1
--- NOTE | 2025-01-31 09:24 | MHC.OFFWIV ---
Intake Vital Signs 01/31/25 09:24 Height 5 ft 11 in Weight 237 lb BMI 33.1 BP 120/70 Blood Pressure Location Rt brachial Position Sitting Pulse 86 Pulse Source Pulse Oximeter Temp 98.4 F Temp Source Oral Pulse Oximetry (%) 97 Oxygen Delivery Method Room Air Intake Visit Reasons: EP LT shoulder pain Intake Note: presents with left shoulder pain that started last night- denies injury Patient Tobacco Use Status: Never used Tobacco Allergies No Known Allergies Allergy (Verified 01/31/25 09:27) Do you need a note to return to daycare/school/sports/work: Yes HPI HPI Comments History of Present Illness Details History of Present Illness - The patient is a 64-year-old male presenting with shoulder pain. - The shoulder pain began last night without any known inciting event and was noted upon waking. - The pain is localized to the left shoulder, with occasional numbness extending slightly down the arm. - The pain is exacerbated by movement, particularly when lifting the arm or reaching across the body. - The patient has not taken any medication for the pain and reports increased discomfort at night. - The patient is left hand dominant. - Had no trauma or falls. - He denies chest pain, neck pain, back pain, elbow pain, wrist pain, hand pain, numbness, or tingling. Physical Exam General: Cooperative, healthy appearing, comfortable, no acute distress and well developed Orientation: Patient oriented x3 Limitations: Limited range of motion in the left shoulder due to pain Neck: Normal visual inspection and Yes full ROM Respiratory: Normal respiratory effort and able to speak in complete sentences. Clear to auscultation bilaterally Cardiovascular: Regular rate and rhythm. Normal S1 and S2. No m/r/g noted. Skin: No rashes or lesions noted Neuro: Patient oriented x3. Sensation intact. Extremities: No deformity noted. FROM of the left shoulder. No click noted. TTP of the left AC joint, left bicpital groove, left anterior shoulder. No TTP of the posterior left shoulder in the trapezius noted. Apprehension test is negative. Can test is negative. Lift off test is negative. FROM of the left elbow, wrist. Hand pricing strategist is intact. Strength is 5/5 on the UE. Patient was informed and verbally consented to the use of an ambient scribe for clinic note documentation during this visit. [facility] Medical History Carpal tunnel syndrome on both sides Chronic pain of right knee Glaucoma Essential hypertension Depression Surgical History Hx of colonoscopy Family History Sister Diabetes Arthritis Brother Arthritis Mother Breast cancer Father No problems noted. 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- [employer] Review of Systems Const All systems reviewed & are unremarkable except as noted in HPI and below Physical Exam Vital Signs: Last Vital Signs Temp 98.4 F 01/31/25 09:24 Pulse 86 01/31/25 09:24 BP 120/70 01/31/25 09:24 Pulse Ox 97 01/31/25 09:24 Oxygen Delivery Method Room Air 01/31/25 09:24 BMI result Body Mass Index 33.1 Results Reviewed Results Reviewed: reviewed the x-ray in the office Assessment & Plan Assessment & Plan (1) Shoulder pain, left: Code(s): M25.512 - Pain in left shoulder Qualifiers: Chronicity: acute Qualified Code(s): M25.512 - Pain in left shoulder Plan Most likely strain vs tendonitis vs bursitis vs arthritis vs calcific tendonitis vs rotator cuff Plan - will order x-ray - rest, ice, elevation - naproxen as needed for pain - wear the sling for comfort- pt refused in the office today - activities as tolerated - can refer to ortho if no better - follow up with PCP Orders: Orders XR shoulder LT min 2V Today M25.512 - Pain in left shoulder Medications: New naproxen 500 mg PO Q12H PRN 20 tabs 0RF pain 7 days Coding Level of Care Code Est Pt Level 4 (37323) Diagnoses Acute pain of left shoulder M25.512 Chronicity: acute
== END 2025-01-31 10:39 | disposition home or self-care (01) ==
PROVIDERS: PCP Internal Medicine; Visit Provider Physician Assistant Medical
DX: M25.512 Pain in left shoulder (principal)

== ENCOUNTER 2025-01-31 08:24 | Outpatient (REF) | payer MEDICARE, MEDICAID, SELFPAY ==
--- NOTE | ~2025-01-31 | XR_ITS ---
EXAMINATION: XR SHOULDER, LEFT CLINICAL INFORMATION: M25.512 - Pain in left shoulder COMPARISON: None available. TECHNIQUE: Three views of the left shoulder. FINDINGS: Normal bone mineralization. No fracture, dislocation, or suspicious bone lesion. Normal alignment. The glenohumeral joint is normal. The AC joint is normal. There is a neutral lateral acromion. No undersurface spurring. The subacromial space is preserved. There is mild calcification of the supraspinatus tendon abutting the greater tuberosity. Remainder of the soft tissue and bony structures appear normal. XR/XR shoulder LT min 2V IMPRESSION: Mild calcific tendinopathy of the rotator cuff. Electronically signed by: Donavon Palumbo MD 01/31/2025 10:22 AM EDT
== END 2025-01-31 08:25 | disposition home or self-care (01) ==
LOC: HO.HMGCX 08:24
PROVIDERS: PCP Internal Medicine; Visit Provider Physician Assistant Medical
DX: M25.512 Pain in left shoulder (principal); R20.0 Anesthesia of skin
CPT/HCPCS: 73030; 99212

== ENCOUNTER → 2025-01-31 10:00 | Outpatient (BNV) | payer MEDICARE, MEDICAID, SELFPAY | PROVIDERS: PCP Internal Medicine; Visit Provider Radiology Diagnostic Radiology | DX: M75.32 Calcific tendinitis of left shoulder (principal) | CPT/HCPCS: 73030 ==

== ENCOUNTER 2025-03-28 07:31 | Outpatient (AMB) | payer MEDICARE, MEDICAID, SELFPAY ==
--- NOTE | 2025-03-28 07:34 | MHC.OFFWIV ---
Intake Vital Signs 03/28/25 07:36 Height 5 ft 11 in Weight 247 lb BMI 34.4 BP 150/88 H Blood Pressure Location Lt brachial Position Sitting Respiration 16 Pulse 60 Pulse Source Pulse Oximeter Pulse Oximetry (%) 96 Oxygen Delivery Method Room Air Intake Visit Reasons: EP-lt foot pain Intake Note: Pt is here today c/o Lt foot pain: pt states has a h/o gout Patient Tobacco Use Status: Never used Tobacco Allergies No Known Allergies Allergy (Verified 03/28/25 07:37) HPI HPI Comments History of Present Illness Details History of Present Illness - The patient is a 64-year-old male presenting with numbness and soreness in the left foot. - The numbness and soreness primarily affect the big toe and extend from the ball of the foot. - Symptoms include numbness and tingling, with occasional soreness to the great attributed to a special boot. - The patient has diabetes, which may be contributing to neuropathy symptoms. - Gabapentin was previously used but discontinued; it is being reconsidered for neuropathy management. - He has no known injury to the foot. - He has been on Indomethacin for his pain. - He denies fever, chills, calf pain, ankle pain, or redness. Physical Exam General: Cooperative, healthy appearing, comfortable, no acute distress and well developed Orientation: Patient oriented x3 Respiratory: Normal respiratory effort and able to speak in complete sentences. Clear to auscultation bilaterally. No w/r/r noted. Cardiovascular: Regular rate and rhythm. Normal S1 and S2. No m/r/g noted. Skin: No abrasions, bruising, or edema noted. Neuro: Sensation is intact. Extremities: No deformity noted to the left foot. FROM of the toes on the left foot. No TTP of the digits. No TTP of the forefoot, plantar fascia, or calcaneous. Ambulates with steady gait. Strength is 5/5 on the LE. Patient was informed and verbally consented to the use of an ambient scribe for clinic note documentation during this visit. [facility] Medical History Carpal tunnel syndrome on both sides Chronic pain of right knee Glaucoma Essential hypertension Depression Surgical History Hx of colonoscopy Family History Sister Diabetes Arthritis Brother Arthritis Mother Breast cancer Father No problems noted. 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- [employer] Review of Systems Const All systems reviewed & are unremarkable except as noted in HPI and below Physical Exam Vital Signs: Last Vital Signs Pulse 60 03/28/25 07:36 Resp 16 03/28/25 07:36 BP 150/88 H 03/28/25 07:36 Pulse Ox 96 03/28/25 07:36 Oxygen Delivery Method Room Air 03/28/25 07:36 BMI result Body Mass Index 34.4 Assessment & Plan Assessment & Plan (1) Numbness of left foot: Code(s): R20.0 - Anesthesia of skin Plan Most likely neuropathy Doesn't have redness or warmth so its unlikely to be gout or cellulitis plan - Initiate gabapentin 100 mg at nighttime to manage neuropathy symptoms. - Elevate the feet. - Recommend follow-up with primary care physician for further evaluation and potential EMG study. - Advise follow-up with podiatry for ongoing foot care management. Medications: New gabapentin 100 mg PO BEDTIME 30 caps 0RF Coding Level of Care Code Est Pt Level 3 (94940) Diagnoses Numbness of left foot R20.0
--- OUTSIDE RECORDS SUMMARY | 2025-03-28 07:34 | XMS_ITS | Clinical Summary ---
Author Organization [facility] Address [address] [place] [address] Care Team Providers Care Delivery Truck Driver Heavy Name Role Phone GibsonBernice CARLOS Primary Care Provider [phone] Source Comments PLEASE NOTE, if this patient [...] Plan of Treatment Not on file Insurance [place] Member Subscriber Plan / Payer (Ef fective 2013-Present) Name:Hussein Tarango Relation to Subscriber:Self Name:Hussein Tarango Payer ID:[id number] Group ID:Not on file Type:Medicaid Address: [address] [address] MEDICARE - [place] Care Teams Delivery Truck Driver Heavy Relationship Specialty Start Date End Date Bernice Gibson NP [phone] [place] [address] PCP - General Internal Medicine 11/22/14
--- OUTSIDE RECORDS SUMMARY | 2025-03-28 07:34 | XMS_ITS | Clinical Summary ---
Author Organization [facility] [address] [facility] Address [address] [facility] [place] [address] Phone Care Team Providers Care Roll Tester Name Role Phone Luis Jimenez MD Primary Care Provider [phone] Allergies No known active allergies Medications acetaminophen (TYLENOL) 500 mg tablet TAKE 2 TABLETS BY MOUTH 3 TIMES DAILY NEEDED FOR PAIN. 1 Active diclofenac (VOLTAREN) 1 % topical gel 4 Active docusate sodium (COLACE) 100 mg capsule TAKE 1 CAPSULE BY MOUTH EVERY DAY 4 Active timolol (TIMOPTIC) 0.25 % ophthalmic solution 1 gtt ou bid Active atorvastatin (LIPITOR) 20 mg tablet Take 1 tablet (20 mg total) by mouth at bedtime. at bedtime. 90 tablet 2 5 Active hydroCHLOROthi azide (HYDRODIURIL) 25 mg tablet Take 1 tablet (25 mg total) by mouth 1 (one) time each day. 90 tablet 2 5 Active cyanocobalamin (VITAMIN B-12) 2,000 mcg tablet Take 1 tablet (2,000 mcg total) by mouth 1 (one) time each day. 90 tablet 1 5 Active omeprazole (PriLOSEC) [address] capsule TAKE 1 CAPSULE BY MOUTH EVERY DAY 90 capsule 1 5 Active predniSONE (DELTASONE) 20 mg tablet Take 1 tablet (20 mg total) by mouth 2 (two) times a day. 10 tablet 5 Active indomethacin (INDOCIN) 50 mg capsule TAKE 1 CAPSULE BY MOUTH 2 TIMES A DAY WITH MEALS. 60 capsule Active indomethacin (INDOCIN) 50 mg capsule Take 1 capsule (50 mg total) by mouth 2 (two) times a day with meals. 60 each 03/24/20 Discontinued Active Problems Problem Noted Date Diagnosed Date Depression 04/13/2024 Essential hypertension, benign 04/13/2024 Glaucoma 04/13/2024 High cholesterol 04/13/2024 Controlled type 2 diabetes m ellitus without complication, without long-term current use of insulin ([facility] V24, [facility] V28) 09/30/2023 Gastroesophageal reflux disease without esophagi tis 09/30/2023 Obese 12/10/2010 Encounters Date Type Department Care Team Description 03/10/2025 2:00 PM EDT Office Visit Orthopedic Surgery [address] [phone] Alexi Valdez DPM PAD (peripheral artery disease) ([facility]) (Primary Dx); Controlled type 2 diabetes mellitus with diabetic polyneuropathy, without long-term current use of insulin ([facility] V24, [facility] V28); Hammertoes of both feet; Closed fracture of sesamoid bone of right foot with routine healing, subsequent encounter 03/09/2025 Telephone Adult Medicine [address] [phone] Luis Jimenez MD 03/03/2025 Telephone Adult Medicine [address] [phone] Luis Jimenez MD 02/23/2025 2:30 PM EDT Office Visit Adult Medicine [address] [phone] China Perez NP Right foot pain (Primary Dx); Essential hypertension, benign; Acute gout involving toe of right foot, unspecified cause 02/07/2025 1:45 PM EDT Office Visit Orthopedic Surgery [place] [address] [phone] Alexi Valdez DPM Controlled type 2 diabetes mellitus with diabetic polyneuropathy, without long-term current use of insulin ([facility], [facility] V28) (Primary Dx); PAD (peripheral artery disease) ([facility] V24); Hammertoes of both feet; Closed fracture of sesamoid bone of right foot, initial encounter; Onychomycosis 02/01/2025 Telephone Adult Medicine [address] [phone] Luis Jimenez MD 01/25/2025 2:00 PM EDT Office Visit Orthopedic Surgery - [place] [address] [phone] Alexi Valdez DPM Controlled type 2 diabetes mellitus with diabetic polyneuropathy, without long-term current use of insulin ([facility] V24, [facility] V28) (Primary Dx); PAD (peripheral artery disease) ([facility] V24); Hammertoes of both feet; Capsulitis of metatarsophalangeal (MTP) joint of right foot 01/24/2025 Telephone Adult Medicine [address] [phone] Luis Jimenez MD 01/23/2025 8:08 AM EDT - 01/23/2025 11:23 AM EDT Emergency [facility] [address] [place] [phone] Rick Koo MD 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, initial encounter (Primary Dx); Closed fracture of sesamoid bone of right foot, initial encounter Discharge Disposition: Home or Self Care from Last 3 Months Immunizations Immunization Administration Dates Next Due Influenza Quadravalent, MDCK [...] Surgery Date Site/Laterality Comments COLONOSCOPY 2012 PROCEDURE: SD COLONOSCOPY FLX DX W/COLLJ SPEC WHEN PFRMD; COMMENT: normal OTHER SURGICAL HISTORY ?2007 PROCEDURE: SD EXPLORATORY LAPAROTOMY CELIOTOMY W/WO BIOPSY SPX; COMMENT: [...] Sign Reading Time Taken Comments Blood Pressure 124/74 02/23/2025 1:57 PM EDT Pulse 76 02/23/2025 1:57 PM EDT Temperature 35.9 C (96.7 F) 02/23/2025 1:57 PM EDT Respiratory Rate 18 02/23/2025 1:57 PM EDT Oxygen Saturation 97% 02/23/2025 1:57 PM EDT Inhaled Oxygen Concentration - - Weight 111 kg (245 lb) 02/23/2025 1:57 PM EDT Height 180.3 cm (5' 11 ) 02/23/2025 1:57 PM EDT Body Mass Index 34.17 02/23/2025 1:57 PM EDT Plan of Treatment Upcoming Encounters Date Type Department Care Team (Late st Contact Info) Description 04/21/2025 2:00 PM EST Office Visit Orthopedic Surgery [facility] [address] [phone] Alexi Valdez, DPLauren [address] [address] 04/29/2025 3:30 PM EST Office Visit Adult Medicine [facility] [address] [place], [place] [phone] Luis Jimenez MD [address] [place], [place] Health Maintenance Due Date Last Done Comments Colorectal Cancer Screening: Colonoscopy 1960 Pneumococcal Vaccine: 50+ Years (1 of 2 - PCV) 1979 RSV Immunization Adult Patients (1 - Risk 60-74 years 1-dose series) 2020 DTaP,Tdap,and Td Vaccines (2 - Td or Tdap) 11/14/2021 11/15/2011 HIV Screening 05/25/2022 Medicare Annual Wellness Visit [...] VIEWS RIGHT STAT 01/23/2025 9:30 AM EDT COMPREHENSIVE METABOLIC PANEL Routine 10/19/2024 4:23 PM EDT Controlled type 2 diabetes mellitus without complication, without long-term current use of insulin ([facility] V24, [facility] V28) Essential hypertension, benign Encounter for long-term (current) use of medications HEMOGLOBIN A1C Routine 10/19/2024 4:23 PM EDT Controlled type 2 diabetes mellitus without complication, without long-term current use of insulin ([facility] V24, [facility] V28) LIPID PANEL WITH REFLEX TO DIRECT [...] acetonide 40 mg/mL Informed Consent: Laterality: Right us Alexi Valdez DPM IN CLINIC/BEDSIDE ORDERABLE S Edited Result - Final * (ABNORMAL) POCT Glucose, blood (01/23/2025 9:32 AM EDT) [facility] Signature Glucose POCT 189(H) 70 - 100 mg/dL 01/23/2025 9:33 AM EDT [facility] Blood Capillary blood specimen / Unknown 01/23/2025 9:32 AM EDT 01/23/2025 9:34 AM EDT us Rick Koo MD LAB POINT OF CARE T EST DOCKED DEVICE UNSOLICITED RESULTS Final Result [facility]) [facility] [address] [place] [address], [place] [phone] * XR Foot 3+ Views Right (01/23/2025 9:30 AM EDT) Anatomical Region Laterality Modality Lower Extremities, Foot Right Radiogra phic Imaging 01/23/2025 9:40 AM EDT Impressions 01/23/2025 9:41 AM EDT No acute findings. -------- FINAL REPORT -------- Dictated By: Saw Graf Dictated Date: 01/23/2025 09:40 ET Assigned Physician: Saw Graf Reviewed and Electronically Signed By: Saw Graf Signed Date: 01/23/2025 09:41 ET Workstation ID: [id number] Transcribed By: Self Edit Transcribed Date: 01/23/2025 [...] Signed Date: 01/23/2025 09:41 ET Workstation ID: [id number] Transcribed By: Self Edit Transcribed Date: 01/23/2025 09:40 ET us Rick Koo MD IMG XR PROCEDURES Final Res ult * (ABNORMAL) Lipid panel with reflex to direct LDL (10/19/2024 4:23 PM EDT) Cholesterol 138 0 - 200 mg/dL LAB CHEMISTRY METHOD 10/19/2024 7:02 PM EDT [facility] Triglycerides 130 0 - 150 mg/dL LAB CHEMISTRY METHOD 10/19/2024 7:02 PM EDT [facility] HDL 33(L) >=40 mg/dL LAB CHEMISTRY METHOD 10/19/2024 7:02 PM EDT [facility] LDL Calculated 79 0 - 100 mg/dL LAB CHEMISTRY METHOD 10/19/2024 7:02 PM EDT [facility] VLDL Cholesterol Krishan 26 mg/dL LAB CHEMISTRY METHOD 10/19/2024 7:02 PM EDT [facility] Non HDL Chol. (LDL+VLDL) 105 <145 mg/dL LAB CHEMISTRY METHOD 10/19/2024 7:02 PM EDT [facility] Chol/HDL Ratio 4.2 0.0 - 4.4 LAB CHEMISTRY METHOD 10/19/2024 7:02 PM EDT [facility] Blood Venous blood specimen / Unknown Venipuncture / Unknown 10/19/2024 4:23 PM EDT 10/19/2024 4:23 PM EDT us Luis Jimenez MD LAB BLOOD ORDERABLES Final Resu lt [facility] [address] [place] [address], * (ABNORMAL) Hemoglobin A1c (10/19/2024 4:23 PM EDT) Hemoglobin A1C 7.2(H) <6.5 % LAB CHEMISTRY METHOD 10/20/2024 10:50 AM EDT [facility] Mean Bld Glu Estim. 160 mg/dL LAB CHEMISTRY METHOD 10/20/2024 10:50 AM [facility] Blood Venous blood specimen / Unknown Venipuncture / Unknown 10/19/2024 4:23 PM EDT 10/19/2024 4:23 PM EDT us Luis Jimenez MD LAB BLOOD ORDERABLES Final Resu lt [facility] [address] [place] [address], [place] [phone] * (ABNORMAL) Comprehensive metabolic panel (10/19/2024 4:23 PM EDT) Sodium 134 133 - 145 mmol/L LAB CHEMISTRY METHOD 10/19/2024 7:02 PM [facility] Potassium 3.6 3.5 - 5.5 mmol/L LAB CHEMISTRY METHOD 10/19/2024 7:02 PM [facility] Chloride 98 96 - 110 mmol/L LAB CHEMISTRY METHOD 10/19/2024 7:02 PM [facility] CO2 28 21 - 32 mmol/L LAB CHEMISTRY METHOD 10/19/2024 7:02 PM [facility] Anion Gap 8 3 - 11 LAB CHEMISTRY METHOD 10/19/2024 7:02 PM [facility] Glucose 132(H) 70 - 100 mg/dL LAB CHEMISTRY METHOD 10/19/2024 7:02 PM [facility] BUN 10 5 - 25 mg/dL LAB CHEMISTRY METHOD 10/19/2024 7:02 PM [facility] Creatinine 0.94 0.70 - 1.30 mg/dL LAB CHEMISTRY METHOD 10/19/2024 7:02 PM [facility] eGFR 91 >=60 mL/min/1. 73m2 LAB CHEMISTRY METHOD 10/19/2024 7:02 PM [facility] Comment:Calculation based on the Chronic Kidney Disease Epidemiology Collaboration (CKD-EPI) equation refit without adjustment for race. BUN/Creatinine Ratio 10.6 LAB CHEMISTRY METHOD 10/19/2024 7:02 PM [facility] Calcium 9.1 8.5 - 10.5 mg/dL LAB CHEMISTRY METHOD 10/19/2024 7:02 PM EDT [facility] AST (SGOT) 17 10 - 42 unit/L LAB CHEMISTRY METHOD 10/19/2024 7:02 PM [facility] ALT (SGPT) 30 10 - 60 unit/L LAB CHEMISTRY [facility] Alkaline Phosphatase 260(H) 42 - 121 unit/L LAB CHEMISTRY METHOD 10/19/2024 7:02 PM [facility] Total Protein 7.3 6.0 - 8.0 g/dL LAB CHEMISTRY METHOD 10/19/2024 7:02 PM [facility] Albumin 4.0 3.2 - 5.0 g/dL LAB CHEMISTRY METHOD 10/19/2024 7:02 PM [facility] Total Bilirubin 0.7 0.0 - 1.4 mg/dL LAB CHEMISTRY METHOD 10/19/2024 7:02 PM [facility] Blood Venous blood specimen / Unknown Venipuncture / Unknown 10/19/2024 4:23 PM EDT 10/19/2024 4:23 PM EDT Luis Jimenez MD LAB BLOOD ORDERABLES Final Resu lt [facility] [address] [place] [address], * Diabetes Foot Exam (04/06/2024) Diabetes: Annual Foot Exam abstracted Historical Provider HEALTH MAINTENANCE Final Result * Urine Albumin Creatinine Ratio (09/30/2023) Urine Albumin Creatinine Ratio abstracted Historical Provider HEALTH MAINTENANCE Final Result * Diabetes Eye Exam (07/23/2023) Diabetes: Annual Retina Eye Exam absstracted Historical Provider HEALTH MAINTENANCE Final Result * Hepatitis C Screening (05/24/2016) Hepatitis C Screening abstracted us Historical Provider HEALTH MAINTENANCE Final Result from Last 3 Months or Most Recently Relevant to Health Maintenance Insurance MEDICARE MEDICAID - [place] Care Teams Roll Tester Relationship Specialty Start Date End Date Luis Jimenez MD [address] [place] [phone] PCP - General 06/28/09
--- OUTSIDE RECORDS SUMMARY | 2025-03-28 07:34 | XMS_ITS | Encounter Summary ---
Author Organization [facility] Address [address] [place] [address] Care Team Providers Care National Flatbed Truck Driver Name Role Phone Luis Jimenez MD Primary Care Provider [phone] Reason for Visit * Reason Onset Date Comments Office Notes 03/03/2025 Encounter Details Date Type Department Care Team (Late st Contact Info) Description 03/03/2025 Telephone Adult Medicine [address] [phone] Luis Jimenez MD [address] [place] [address] Social History Tobacco Use Types Packs/Day Years [...] Orientation Straight 09/24/2024 7: 30 AM EDT documented as of this encounter Progress Notes * Luis Jimenez MD - 03/24/2025 7:38 PM EDT I dont understand are they asking me to sign China's note ? * Agustin Marie MA - 03/24/2025 1:28 PM EDT WILL 02/23/25, please review and advise on message below. Last office visit has to be signed by MD and then we can send over * Li Jiménez - 03/22/2025 11:08 AM EDT Yumiko is calling in to request the patients last office notes on 02/23/25. She states that they canbe electronically signed but it has to be an MD - no PA or TEACHER OF THE DEAF/HARD OF HEARING. She states she got office notes sentto her but they were from October and she needs February. Best fax number is [phone]. * Brenda Griffiths MA - 03/11/2025 10:47 AM EDT Notes faxed per request. * Cierra Koenig - 03/08/2025 11:13 AM EDT Yumiko is calling back on this. Needs to be signed by PCP. * Li Jiménez - 03/03/2025 3:12 PM EDT Yumiko is calling in to request the patients last office notes on 02/23/25. She states that they canbe electronically signed but it has to be an MD - no PA or TEACHER OF THE DEAF/HARD OF HEARING. Best fax number is [phone]. documented in this encounter Plan of Treatment Upcoming Encounters Date Type Department Care Team (Late st Contact Info) Description 04/21/2025 2:00 PM EST Office Visit Orthopedic Surgery - [place] [address] [facility] [address] [place] [phone] Alexi Valdez, BRETT [address] [address] 04/29/2025 3:30 PM EST Office Visit Adult Medicine [address] [phone] Luis Jimenez MD [address] [place] [address] documented as of this encounter Visit Diagnoses Not on filedocumented in this encounter Care Teams National Flatbed Truck Driver Relationship Specialty Start Date End Date Luis Jimenez MD [address] [place] [address] PCP - General 06/28/09 documented as of this encounter
[2025-03-28 07:36] VITALS: BP 150/88; PULSE 60; RESP 16; O2SAT 96; BMI 34.4
== END 2025-03-28 08:05 | disposition home or self-care (01) ==
PROVIDERS: PCP Internal Medicine; Visit Provider Physician Assistant Medical
DX: R20.0 Anesthesia of skin (principal)

== ENCOUNTER → 2025-03-28 07:31 | Outpatient (BNVA) | payer MEDICARE, MEDICAID, SELFPAY | PROVIDERS: PCP Internal Medicine; Visit Provider Physician Assistant Medical | DX: M79.672 Pain in left foot (principal); R20.0 Anesthesia of skin | CPT/HCPCS: 99212 ==

== ENCOUNTER 2025-03-29 08:37 | Outpatient (AMB) | payer MEDICARE, MEDICAID, SELFPAY ==
--- NOTE | 2025-03-29 08:52 | MHC.OFFWIV ---
Intake Vital Signs 03/29/25 08:53 Height 5 ft 11 in Weight 247 lb BMI 34.4 BP 182/110 H Blood Pressure Location Lt brachial Position Sitting Pulse 58 Pulse Source Pulse Oximeter Temp 97.7 F Temp Source Oral Pulse Oximetry (%) 98 Oxygen Delivery Method Room Air Intake Visit Reasons: EP-lt foot pain-medication reaction Intake Note: pt presents with concern for headache after starting the gabapentin yesterday for LT footr, also experiencing GERD Patient Tobacco Use Status: Never used Tobacco Allergies No Known Allergies Allergy (Verified 03/29/25 08:55) Medication List - Last Reconciled 03/29/25 by Elizabeth Cartagena PA-C arm brace (Wrist Brace Medium) As directed atorvastatin 20 mg PO DAILY cyanocobalamin (vitamin B-12) 2,000 mcg PO DAILY docusate sodium 100 mg PO DAILY folic acid 1 mg PO QAM gabapentin 100 mg PO BEDTIME hydrochlorothiazide 25 mg PO DAILY indomethacin 50 mg PO bid 7 days naproxen 500 mg PO Q12H PRN 7 days omeprazole 40 mg PO DAILY risperidone 3 mg PO QAM timolol maleate 0.5% 0 drps ophthalmic (eye) Do you need a note to return to daycare/school/sports/work: No HPI HPI Comments History of Present Illness Details History of Present Illness - The patient is a 64-year-old male presenting with headache since last night. - He thinks it is due to the Gabapentin he re-started last night for foot neuropathy, he took 100mg - The patient has a history of borderline high blood pressure diagnosed by Dr. Jimenez, with a current reading of 182/110 mmHg. - He reports headaches and a foggy sensation, likely related to the elevated blood pressure. - The patient is taking hydrochlorothiazide 25 mg, but adherence to the medication regimen is unclear, he thinks he takes 2 medications at night for his BP and he took them last night. - Denies dizziness, chest pain, shortness of breath or vision changes. Physical Exam General: Cooperative, healthy appearing, comfortable, no acute distress and well developed Orientation: Patient oriented x3 Limitations: No limitations Head: Normal to inspection Ears: Hearing grossly normal bilaterally Nose: Normal External nose present Face and sinus: Normal facial exam Eyes: Appearance normal, both eyes and all related structures Neck: Normal visual inspection and Yes full ROM Respiratory: Normal respiratory effort and able to speak in complete sentences. Skin: No rashes or lesions noted Neuro: Patient oriented x3 Extremities: Normal to inspection Review of Systems - Neurological: Reports headaches and a foggy sensation. Denies blurry vision, dizziness, chest pain, or shortness of breath. All systems reviewed and are unremarkable except as noted in HPI [facility] Medical History Carpal tunnel syndrome on both sides Chronic pain of right knee Glaucoma Essential hypertension Depression Surgical History Hx of colonoscopy Family History Sister Diabetes Arthritis Brother Arthritis Mother Breast cancer Father No problems noted. 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 - Headache is likely secondary to elevated BP 182/110, not the Gabapentin. - He has been advised to seek emergency care to manage the high blood pressure and prevent complications such as stroke. Advised he is at high risk for a stroke. He refused an ambulance and will drive himself to [facility] ED. - Immediate referral to the emergency department for blood pressure management. - Follow-up with primary care for long-term hypertension management. Coding Level of Care Code New Pt Level 5 (19963) Diagnoses Hypertensive urgency I16.0
[2025-03-29 08:53] VITALS: BP 182/110; PULSE 58; TEMP 36.5; O2SAT 98; BMI 34.4
--- OUTSIDE RECORDS SUMMARY | 2025-03-29 08:57 | XMS_ITS | Encounter Summary ---
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 She states she got office notes sentto her but they were from October and she needs February. Best fax number is [phone]. 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 Best fax number is [phone]. documented in this encounter Plan of Treatment Upcoming Encounters Date Type Department Care Team (Late st Contact Info) Description 04/21/2025 2:00 PM EST Office Visit Orthopedic Surgery - [place] [address] [facility] [address] [place] [address] Alexi Valdez, BRETT [address] [address] 04/29/2025 3:30 PM EST Office Visit Adult Medicine [address] [phone] Luis Jimenez MD [address] [place] [address] documented as of this encounter Visit Diagnoses Not on filedocumented in this encounter Care Teams Director [employer] Relationship Specialty Start Date End Date Luis Jimenez MD [address] [place] [address] PCP - General 06/28/09 documented as of this encounter
--- OUTSIDE RECORDS SUMMARY | 2025-03-29 08:57 | XMS_ITS | Clinical Summary ---
Author Organization [facility] [address] [facility] Address [address] [place] [address] Phone Care Team Providers Care Dermatology Nurse Practitioner Name Role Phone Luis Jimenez MD Primary Care Provider [phone] Allergies No known active allergies Medications acetaminophen [...] without long-term current use of insulin ([facility] V24, [facility] V28) 09/30/2023 Gastroesophageal reflux disease without esophagi tis 09/30/2023 Obese 12/10/2010 Encounters Date Type Department Care Team Description 03/10/2025 2:00 PM EDT Office Visit Orthopedic Surgery [address] [phone] Alexi Valdez DPM PAD (peripheral artery disease) ([facility] V24) (Primary Dx); Controlled type 2 diabetes mellitus with diabetic polyneuropathy, without long-term current use of insulin ([facility] V24, [facility] V28); Hammertoes of both feet; Closed fracture of sesamoid bone of right foot with routine healing, subsequent encounter 03/09/2025 Telephone Adult Medicine [address] [phone] Luis Jimenez MD 03/03/2025 Telephone Adult Medicine [address] [phone] Luis Jimenez MD 02/23/2025 2:30 PM EDT Office Visit Adult Medicine [address] [phone] China Perez NP Right foot pain (Primary Dx); Essential hypertension, benign; Acute gout involving toe of right foot, unspecified cause 02/07/2025 1:45 PM EDT Office Visit Orthopedic Surgery [place] [address] [phone] Alexi Valdez DPM Controlled type 2 diabetes mellitus with diabetic polyneuropathy, without long-term current use of insulin ([facility] V24, [facility] V28) (Primary Dx); PAD (peripheral artery disease) ([facility] V24); Hammertoes of both feet; Closed fracture of sesamoid bone of right foot, initial encounter; Onychomycosis 02/01/2025 Telephone Adult Medicine [address] [phone] Luis Jimenez MD 01/25/2025 2:00 PM EDT Office Visit Orthopedic Surgery - [place] [address] [phone] Alexi Valdez DPM Controlled type 2 diabetes mellitus with diabetic polyneuropathy, without long-term current use of insulin ([facility] V24, [facility] V28) (Primary Dx); PAD (peripheral artery disease) ([facility] V24); Hammertoes of both feet; Capsulitis of metatarsophalangeal (MTP) joint of right foot 01/24/2025 Telephone Adult Medicine [address] [phone] Luis Jimenez MD 01/23/2025 8:08 AM EDT - 01/23/2025 11:23 AM EDT Emergency [facility] Emergency [address] [place] [phone] Rick Koo MD Acute lead-induced gout involving [...] 2:00 PM EST Office Visit Orthopedic Surgery [facility] [address] [phone] Alexi Valdez, DPLauren [address] [address] 04/29/2025 3:30 PM EST Office Visit Adult Medicine [facility] [address] [place], [place] [phone] Luis Jimenez MD [address] [place], [place] Health Maintenance Due Date Last Done Comments Colorectal Cancer Screening: Colonoscopy 1960 Pneumococcal Vaccine: 50+ Years (1 of 2 - PCV) 1979 RSV Immunization Adult Patients (1 - Risk 50-74 years 1-dose series) 2010 DTaP,Tdap,and Td Vaccines (2 - Td or [...] without long-term current use of insulin ([facility] V24, [facility] V28) Essential hypertension, benign Encounter for long-term (current) use of medications HEMOGLOBIN A1C Routine 10/19/2024 4:23 PM EDT Controlled type 2 diabetes mellitus without complication, without long-term current use of insulin ([facility] V24, [facility] V28) LIPID PANEL WITH REFLEX TO DIRECT [...] POCT Glucose, blood (01/23/2025 9:32 AM EDT) [facility] Signature Glucose POCT 189(H) 70 - 100 mg/dL 01/23/2025 9:33 AM EDT [facility] Blood Capillary blood specimen / Unknown 01/23/2025 9:32 AM EDT 01/23/2025 9:34 AM EDT us Rick Koo MD LAB POINT OF CARE T EST DOCKED DEVICE UNSOLICITED RESULTS Final Result [facility] [address] [place] [address], [place] [phone] * XR Foot 3+ Views Right (01/23/2025 [...] Signed Date: 01/23/2025 09:41 ET Workstation ID: [id number] Transcribed By: Self Edit Transcribed Date: 01/23/2025 [...] Signed Date: 01/23/2025 09:41 ET Workstation ID: [id number] Transcribed By: Self Edit Transcribed Date: 01/23/2025 09:40 ET us Rick Koo MD IMG XR PROCEDURES Final Res ult * (ABNORMAL) Lipid panel with reflex to direct LDL (10/19/2024 4:23 PM EDT) Cholesterol 138 0 - 200 mg/dL LAB CHEMISTRY METHOD 10/19/2024 7:02 PM EDT [facility] Triglycerides 130 0 - 150 mg/dL LAB CHEMISTRY METHOD 10/19/2024 7:02 PM EDT [facility] HDL 33(L) >=40 mg/dL LAB CHEMISTRY METHOD 10/19/2024 7:02 PM EDT [facility] LDL Calculated 79 0 - 100 mg/dL LAB CHEMISTRY METHOD 10/19/2024 7:02 PM EDT [facility] VLDL Cholesterol Krishan 26 mg/dL LAB CHEMISTRY METHOD 10/19/2024 7:02 PM EDT [facility] Non HDL Chol. (LDL+VLDL) 105 <145 mg/dL LAB CHEMISTRY METHOD 10/19/2024 7:02 PM EDT [facility] Chol/HDL Ratio 4.2 0.0 - 4.4 LAB CHEMISTRY METHOD 10/19/2024 7:02 PM EDT [facility] Blood Venous blood specimen / Unknown Venipuncture / Unknown 10/19/2024 4:23 PM EDT 10/19/2024 4:23 PM EDT us Luis Jimenez MD LAB BLOOD ORDERABLES Final Resu lt [facility] [address] [place] [address], * (ABNORMAL) Hemoglobin A1c (10/19/2024 4:23 PM EDT) Hemoglobin A1C 7.2(H) <6.5 % LAB CHEMISTRY METHOD 10/20/2024 10:50 AM EDT [facility] Mean Bld Glu Estim. 160 mg/dL LAB CHEMISTRY METHOD 10/20/2024 10:50 AM T [facility] Blood Venous blood specimen / Unknown Venipuncture / Unknown 10/19/2024 4:23 PM EDT 10/19/2024 4:23 PM EDT us Luis Jimenez MD LAB BLOOD ORDERABLES Final Resu lt [facility] [address] [place] [address], [place] [phone] * (ABNORMAL) Comprehensive metabolic panel (10/19/2024 4:23 PM EDT) Sodium 134 133 - 145 mmol/L LAB CHEMISTRY METHOD 10/19/2024 7:02 PM [facility] Potassium 3.6 3.5 - 5.5 mmol/L LAB CHEMISTRY METHOD 10/19/2024 7:02 PM [facility] Chloride 98 96 - 110 mmol/L LAB CHEMISTRY METHOD 10/19/2024 7:02 PM [facility] CO2 28 21 - 32 mmol/L LAB CHEMISTRY METHOD 10/19/2024 7:02 PM [facility] Anion Gap 8 3 - 11 LAB CHEMISTRY METHOD 10/19/2024 7:02 PM [facility] Glucose 132(H) 70 - 100 mg/dL LAB CHEMISTRY METHOD 10/19/2024 7:02 PM [facility] BUN 10 5 - 25 mg/dL LAB CHEMISTRY METHOD 10/19/2024 7:02 PM [facility] Creatinine 0.94 0.70 - 1.30 mg/dL LAB CHEMISTRY METHOD 10/19/2024 7:02 PM [facility] eGFR 91 >=60 mL/min/1. 73m2 LAB CHEMISTRY METHOD 10/19/2024 7:02 PM [facility] Comment:Calculation based on the Chronic Kidney Disease Epidemiology Collaboration (CKD-EPI) equation refit without adjustment for race. BUN/Creatinine Ratio 10.6 LAB CHEMISTRY METHOD 10/19/2024 7:02 PM [facility] Calcium 9.1 8.5 - 10.5 mg/dL LAB CHEMISTRY METHOD 10/19/2024 7:02 PM EDT [facility] AST (SGOT) 17 10 - 42 unit/L LAB CHEMISTRY METHOD 10/19/2024 7:02 PM [facility] ALT (SGPT) 30 10 - 60 unit/L LAB CHEMISTRY METHOD [facility]/19[facility]24 [facility] Alkaline Phosphatase 260(H) 42 - 121 unit/L LAB CHEMISTRY METHOD 10/19/2024 7:02 PM [facility] Total Protein 7.3 6.0 - 8.0 g/dL LAB CHEMISTRY METHOD 10/19/2024 7:02 PM [facility] Albumin 4.0 3.2 - 5.0 g/dL LAB CHEMISTRY METHOD 10/19/2024 7:02 PM [facility] Total Bilirubin 0.7 0.0 - 1.4 mg/dL LAB CHEMISTRY METHOD 10/19/2024 7:02 PM [facility] Blood Venous blood specimen / Unknown Venipuncture / Unknown 10/19/2024 4:23 PM EDT 10/19/2024 4:23 PM EDT Luis Jimenez MD LAB BLOOD ORDERABLES Final Resu lt [facility] [address] [place] [address], * Diabetes Foot Exam (04/06/2024) Diabetes: Annual Foot Exam abstracted Historical Provider HEALTH MAINTENANCE Final Result * Urine Albumin Creatinine Ratio (09/30/2023) Urine Albumin Creatinine Ratio abstracted Historical Provider HEALTH MAINTENANCE Final Result * Diabetes Eye Exam (07/23/2023) Diabetes: Annual Retina Eye Exam absstracted Historical Provider HEALTH MAINTENANCE Final Result * Hepatitis C Screening (05/24/2016) Pathologist [facility] Hepatitis C Screening abstracted us Historical Provider HEALTH MAINTENANCE Final Result from Last 3 Months or Most Recently Relevant to Health Maintenance Insurance MEDICARE MEDICAID - [place] Care Teams Dermatology Nurse Practitioner Relationship Specialty Start Date End Date Luis Jimenez MD [address] [place] [phone] PCP - General 06/28/09
--- OUTSIDE RECORDS SUMMARY | 2025-03-29 08:57 | XMS_ITS | Clinical Summary ---
Author Organization [facility] Address [address] [place] [address] Care Team Providers Care Vending Machine Technician Name Role Phone GibsonBernice CARLOS Primary Care Provider [phone] Source Comments PLEASE NOTE, if this patient [...] Plan of Treatment Not on file Insurance [place] MEDICAID Member Subscriber Plan / Payer (Ef fective 2013-Present) Name:Hussein Tarango Relation to Subscriber:Self Name:Hussein Tarango Payer ID:[id number] Group ID:Not on file Type:Medicaid Address: [address] [address] MEDICARE - [place] Care Teams Vending Machine Technician Relationship Specialty Start Date End Date Bernice Gibson NP [phone] [place] [address] PCP - General Internal Medicine 11/22/14
== END 2025-03-29 09:23 | disposition home or self-care (01) ==
PROVIDERS: PCP Internal Medicine; Visit Provider Physician Assistant
DX: I16.0 Hypertensive urgency (principal)

== ENCOUNTER → 2025-03-29 08:37 | Outpatient (BNVA) | payer MEDICARE, MEDICAID, SELFPAY | PROVIDERS: PCP Internal Medicine; Visit Provider Physician Assistant | DX: I16.0 Hypertensive urgency (principal); R51.9 Headache, unspecified; G62.9 Polyneuropathy, unspecified; Z79.899 Other long term (current) drug therapy | CPT/HCPCS: 99212 ==

== ENCOUNTER 2025-06-14 07:30 | Outpatient (AMB) | payer MEDICARE, MEDICAID, SELFPAY ==
--- NOTE | 2025-06-14 07:31 | MHC.OFFWIV ---
Intake Vital Signs 06/14/25 07:32 Height 5 ft 11 in Weight 252 lb BMI 35.1 BP 154/80 H Blood Pressure Location Rt brachial Position Sitting Pulse 92 Pulse Source Pulse Oximeter Temp 97.4 F Temp Source Oral Pulse Oximetry (%) 97 Oxygen Delivery Method Room Air Intake Visit Reasons: EP-cough, sinus issue Intake Note: Patient presents c/o cough, sinus congestion x3 days. Patient Tobacco Use Status: Never used Tobacco Allergies No Known Allergies Allergy (Verified 06/14/25 07:35) HPI HPI Comments History of Present Illness Details Patient is a 64yo M who presents to office with 3 days cold symptoms Admits to nasal congestion, dry cough and subjective fever/chills Subjective fever new over last 24 hours + fatigue and decreased appetite No abdominal pain, N/V, CP Tried sinus OTC medicine without relief Admits to slight SOB; no smoker. None at rest + body aches but baseline gout and arthritis Has not completed any OTC flu or covid tests PFSH Medical History Carpal tunnel syndrome on both sides Chronic pain of right knee Glaucoma Essential hypertension Depression Surgical History Hx of colonoscopy Family History Sister Diabetes Arthritis Brother Arthritis Mother Breast cancer Father No problems noted. 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 Speaking full sentences. Skin: Warm dry throughout Eye: EOMI HENT: Airway patent. Uvula midline. No pharyngeal erythema or edema. No SPLITTER TENDER. + clear rhinorrhea Bilateral canals clear. TM non-erythematous, non-bulging. No TM perforation or hemotympanum noted. Respiratory: CTA bilaterally. No wheezes, rales or rhonchi Cardiac: RRR. No murmur MSK: Full ROM extremities. Neurology: Alert. No aphasia or facial droop. Gait without abnormality Psych: Good mood and affect Vital Signs: Last Vital Signs Temp 97.4 F 06/14/25 07:32 Pulse 92 06/14/25 07:32 BP 154/80 H 06/14/25 07:32 Pulse Ox 97 06/14/25 07:32 Oxygen Delivery Method Room Air 06/14/25 07:32 BMI result Body Mass Index 35.1 Assessment & Plan Assessment & Plan (1) Upper respiratory infection: Code(s): J06.9 - Acute upper respiratory infection, unspecified Qualifiers: URI type: unspecified viral URI Qualified Code(s): J06.9 - Acute upper respiratory infection, unspecified Plan: Patient seen and evaluated. Lungs CTA Discussed OTC decongestants and which to avoid with HTN Given nasal spray, Tessalon and Tylenol scripts Flu/COVID swab pending and will call with results Given work note Patient gave verbal understanding and had no additional questions or concerns at time of discharge All questions answered Orders: Orders SARS-CoV2/FLU/RSV Today Elizabeth Cartagena PA-C R09.89 - Other specified symptoms and signs involving the circulatory and respiratory systems Medications: New benzonatate 100 mg PO BID-TID PRN 14 caps 0RF cough Laura Machado PA-C ipratropium bromide administer into each nostril 2 sprays intranasal BID-TID PRN 30 mL 0RF allergy symptoms 2 weeks Laura Machado PA-C acetaminophen (Tylenol Extra Strength) 1-2 tablets every 8H for fever 500 mg PO Q6H PRN 20 tabs 0RF fever Laura Machado PA-C Coding Level of Care Code Est Pt Level 3 (62106) Diagnoses Viral upper respiratory tract infection J06.9 URI type: unspecified viral URI
[2025-06-14 07:32] VITALS: BP 154/80; PULSE 92; TEMP 36.3; O2SAT 97; BMI 35.1
--- OUTSIDE RECORDS SUMMARY | 2025-06-14 09:02 | XMS_ITS | Clinical Summary ---
Author Organization [facility] [address] Address [address] [place] [address] Phone Care Team Providers Care Therapeutic Program Worker Name Role Phone Luis Jimenez MD Primary Care Provider [phone] Allergies No known active allergies Medications docusate sodium (COLACE) 100 mg capsule TAKE [...] each day. 90 tablet 1 5 Active gabapentin (NEURONTIN) 100 mg capsule Take 1 capsule (100 mg total) by mouth at bedtime. Active omeprazole (PriLOSEC) [address] capsule TAKE 1 CAPSULE BY MOUTH EVERY DAY 90 capsule 1 5 Active metFORMIN (GLUCOPHAGE) 500 mg tablet Take 1 tablet (500 mg total) by mouth 2 (two) times a day with meals. 180 each 1 5 05/10/20 26 Active meloxicam (MOBIC) 7.5 mg tablet Take 1 tablet (7.5 mg total) by mouth 1 (one) time each day. 30 tablet 5 Active indomethacin (INDOCIN) 50 mg capsule TAKE 1 CAPSULE BY MOUTH 2 TIMES A DAY WITH MEALS. 60 capsule 5 05/25/20 25 Discontinued indomethacin (INDOCIN) 50 mg capsule TAKE 1 CAPSULE BY MOUTH TWICE A DAY WITH MEALS 60 capsule 5 5 05/27/20 25 Discontinued Hospital, Clinic, or Other Facility Administered Medication Ordered Dose Route Frequency Start Date End Date Status lidocaine (PF) (XYLOCAINE-MPF) 1 % injection 0.5 mLIndications:Capsulitis of metatarsophalangeal (MTP) joint of right foot .5 mL Once PRN Procedure 05/24/2025 5 Ended triamcinolone acetonide (KENALOG-40) 40 mg/mL injection 40 mgIndications:Capsulitis of metatarsophalangeal (MTP) joint of right foot 40 mg Once PRN Procedure 05/24/2025 5 Ended Active Problems Problem Noted Date Diagnosed Date Depression 04/13/2024 Essential hypertension, benign 04/13/2024 Glaucoma 04/13/2024 High cholesterol 04/13/2024 Controlled type 2 diabetes m ellitus without complication, without long-term current use of insulin 09/30/2023 Gastroesophageal reflux disease without esophagi tis 09/30/2023 Obese 12/10/2010 Encounters Date Type Department Care Team Description 05/24/2025 11:00 AM EST Office Visit Orthopedic Surgery - [address] [phone] Alexi Valdez DPM Controlled type 2 diabetes mellitus with diabetic polyneuropathy, without long-term current use of insulin (CMS/HCC V24, CMS/HCC V28) (Primary Dx); PAD (peripheral artery disease) (CMS/HCC V24); Hammertoes of both feet; Capsulitis of metatarsophalangeal (MTP) joint of right foot 05/10/2025 Results Follow-Up Adult [address] [phone] Luis Jimenez MD 05/06/2025 7:40 AM EST Lab Draw Station [address] Diabetes mellitus due to underlying condition, uncontrolled, with hyperglycemia ([facility] V24, [facility] V28); Essential hypertension, benign; Encounter for long-term (current) use of medications; High cholesterol; Controlled type 2 diabetes mellitus without complication, without long-term current use of insulin ([facility] V24, [facility] V28) 04/29/2025 3:30 PM EST Office Visit [address] [phone] Luis Jimenez MD Diabetes mellitus due to underlying condition, uncontrolled, with hyperglycemia ([facility] V24, [facility] V28) (Primary Dx); Essential hypertension, benign; High cholesterol; Encounter for long-term (current) use of medications 04/21/2025 2:00 PM EST Office Visit Orthopedic Surgery [address] [phone] Alexi Valdez DPM Controlled type 2 diabetes mellitus with diabetic polyneuropathy, without long-term current use of insulin ([facility] V24, [facility] V28) (Primary Dx); PAD (peripheral artery disease) ([facility] V24); Hammertoes of both feet; Capsulitis of metatarsophalangeal (MTP) joint of right foot; Dermatophytosis, nail 03/30/2025 11:00 AM EDT Office Visit [address] [phone] Malcom Singh PA Acute gout involving toe of left foot, unspecified cause (Primary Dx); Essential hypertension, benign; Nonintractable headache, unspecified chronicity pattern, unspecified headache type; Dizziness 03/29/2025 10:01 AM EDT - 03/29/2025 12:43 PM EDT Emergency [facility] Emergency [address] [place] [phone] Tarik Bravo MD Secondary hypertension (Primary Dx) Discharge Disposition: Home or Self Care from Last 3 Months Immunizations Immunization Administration Dates Next Due Influenza Quadravalent, MDCK , 0.5ml, preservative free (Flucelvax) 6mo and older 03/14/2023,08/14/2021 Influenza trivalent, 0.5mL, preservative free (Fluarix; FluLaval; Fluzone) ages 6mo and older (Afluria) 3 years and older 03/02/2019,04/19/2018,02/20/2016,2014,02/22/2013,06/30/2012,06/14/2011,1 06/24/2009 Influenza trivalent, recombi nant, 0.5mL, preservative free (Flublok) 9yo and older 04/26/2025 Tdap Tetanus diptheria acell ular pertussis (Boostrix; Adacel) 7yo and older 11/15/2011 Zoster recombinant (Shingrix ) 19yo and older 05/06/2020 Surgical History Surgery Date Site/Laterality Comments COLONOSCOPY 2012 PROCEDURE: [place] COLONOSCOPY FLX DX W/COLLJ SPEC WHEN PFRMD; COMMENT: normal OTHER SURGICAL HISTORY ?2007 PROCEDURE: [place] EXPLORATORY LAPAROTOMY CELIOTOMY W/WO BIOPSY SPX; COMMENT: [...] Orientation Straight 09/24/2024 7: 30 AM EDT Last Filed Vital Signs Vital Sign Reading Time Taken Comments Blood Pressure 126/82 04/29/2025 3:03 PM EST Pulse 70 04/29/2025 3:03 PM EST Temperature 36.6 C (97.8 F) 04/29/2025 3:03 PM EST Respiratory Rate 16 04/29/2025 3:03 PM EST Oxygen Saturation 98% 04/29/2025 3:03 PM EST Inhaled Oxygen Concentration - - Weight 112 kg (246 lb) 04/29/2025 3:03 PM EST Height 180.3 cm (5' 11 ) 04/29/2025 3:03 PM EST Body Mass Index 34.31 04/29/2025 3:03 PM EST Plan of Treatment Upcoming Encounters Date Type Department Care Team (Late st Contact Info) Description 09/19/2025 4:00 PM EDT Office Visit Adult Medicine [facility] [address] [place], [place] [phone] Luis Jimenez MD [address] [place] [address] 10/24/2025 1:30 PM EDT Office Visit Orthopedic Surgery - [place] [phone] [phone] Alexi Valdez, BRETT [address] [address] Health Maintenance Due Date Last Done Comments [...] Retina Eye Exam 07/23/2024 07/23/2023 Diabetes: Annual Foot Exam 04/06/2025 04/06/2024 Diabetes: Blood Sugar Control Test (HGBA1C) 11/03/2025 05/06/2025, 10/19/2024, 04/06/2024, Additional history exists Diabetes: Annual Urine Albumin-Creatinine Ratio (uACR) 05/06/2026 05/06/2025, 09/30/2023 Diabetes: Annual GFR (Glomerular Filtration Rate) 05/06/2026 05/06/2025, 03/29/2025, 10/19/2024, Additional history exists Hypertension/CHF/CAD Annual BMP Blood Test 05/06/2026 05/06/2025, 03/29/2025, 10/19/2024, Additional history exists Cholesterol Screening (Lipid Panel) 05/06/2030 05/06/2025, 10/19/2024, 04/06/2024, Additional history exists Hepatitis C Screening Completed 05/24/2016 Zoster Vaccines Completed 07/15/2020, 05/06/2020 COVID-19 Vaccine Completed 04/26/2025, 12/2023, 06/21/2021, Additional history exists Influenza Vaccine Completed 04/26/2025, , 03/14/2023, Additional history exists HIB Vaccines Aged Out [...] Diagnosis Comments INJECTION TENDON OR LIGAMENT Routine 05/24/2025 11:00 AM EST Capsulitis of metatarsophalangeal (MTP) joint of right foot HEMOGLOBIN A1C Routine 05/06/2025 7:50 AM EST Diabetes mellitus due to underlying condition, uncontrolled, with hyperglycemia ([facility] V24, [facility] V28) LIPID PANEL WITH REFLEX TO DIRECT LDL Routine 05/06/2025 7:50 AM EST Diabetes mellitus due to underlying condition, uncontrolled, with hyperglycemia (CMS/HCC V24, CMS/HCC V28) High cholesterol COMPREHENSIVE METABOLIC PANEL Routine 05/06/2025 7:50 AM EST Diabetes mellitus due to underlying condition, uncontrolled, with hyperglycemia (CMS/HCC V24, CMS/HCC V28) Essential hypertension, benign Encounter for long-term (current) use of medications MICROALBUMIN CREATININE URINE RATIO Routine 05/06/2025 7:50 AM EST Diabetes mellitus due to underlying condition, uncontrolled, with hyperglycemia (CMS/HCC V24, CMS/HCC V28) ECG ANNOTATED 03/30/2025 TROPONIN I HIGH SENSITIVITY Timed 03/29/2025 11:34 AM EDT ECG 12-LEAD STAT 03/29/2025 11:28 AM EDT XR CHEST 2 VIEWS STAT 03/29/2025 10:55 AM EDT ECG 12-LEAD STAT 03/29/2025 10:32 AM EDT CBC WITH AUTO DIFFERENTIAL STAT 03/29/2025 10:25 AM EDT B-TYPE NATRIURETIC PEPTIDE STAT 03/29/2025 10:25 AM EDT MAGNESIUM STAT 03/29/2025 10:25 AM EDT LIPASE STAT 03/29/2025 10:25 AM EDT COMPREHENSIVE METABOLIC PANEL STAT 03/29/2025 10:25 AM EDT CBC AND DIFFERENTIAL STAT 03/29/2025 10:25 AM EDT TROPONIN I HIGH SENSITIVITY Timed 03/29/2025 10:25 AM EDT HM DIABETES FOOT EXAM Routine 04/06/2024 DIABETES EYE EXAM Routine 07/23/2023 HEPATITIS C SCREENING Routine 05/24/2016 from Last 3 Months or Most Recently Relevant to Health Maintenance Results * Injection tendon or ligament (05/24/2025 11:00 AM EST) Alexi Barger DPM - 05/24/2025 11:00 AM TIEN Valdez DPM 05/24/2025 12:21 PM Injection tendon or ligament Indications: pain Details: 25 G needle Medications: 0.5 mL lidocaine (PF) 1 %; 40 mg triamcinolone acetonide 40 mg/mL Informed Consent: Laterality: Right us Alexi Valdez DPM IN CLINIC/BEDSIDE ORDERABLE S Final Result * (ABNORMAL) Lipid panel with reflex to direct LDL (05/06/2025 7:50 AM EST) Cholesterol 154 0 - 200 mg/dL 05/06/2025 10:[address] [facility] Triglycerides 154(H) 0 - 150 mg/dL 05/06/2025 10:[address] [facility] HDL 33(L) >=40 mg/dL 05/06/2025 10:[address] [facility] LDL Calculated 90 0 - 100 mg/dL 05/06/2025 10:[address] [facility] Comment:Estimated LDL Calcul ated using equation: Total cholesterol - HDL cholesterol - (Triglycerides/5) VLDL Cholesterol Krishan 30.8 mg/dL 05/06/2025 10:[address] [facility] Non HDL Chol. (LDL+VLDL) 121 <145 mg/dL 05/06/2025 10:[address] [facility] Chol/HDL Ratio 4.7(H) 0.0 - 4.4 05/06/2025 10:[address] [facility] Blood Venous blood specimen / Unknown Venipuncture / Unknown 05/06/2025 7:50 AM EST 05/06/2025 7:50 AM EST us Luis Jimenez MD LAB BLOOD ORDERABLES Final Resu lt Performing Organization Address [facility]/ZIP Co de Phone Number [facility] [address] [place] [address], [place] [phone] * Microalbumin creatinine urine ratio (05/06/2025 7:50 AM EST) Creatinine, Urine 123.0 mg/dL 05/06/2025 10:53 AM EST [facility] Microalb, Ur 4.0 0.0 - 29.0 mg/L 05/06/2025 10:53 AM EST [facility] Microalb/Creat Ratio 3 <30 mg/g creat 05/06/2025 10:53 AM EST [facility] Urine Urine specimen obtained by clean catch procedure / Unknown Non-blood Collection / Unknown 05/06/2025 7:50 AM EST 05/06/2025 7:50 AM EST us Luis Jimenez MD LAB URINE ORDERABLES Final Resu lt Performing Organization Address [facility] Co de Phone Number [facility] [address] [place] [address], [place] [phone] * (ABNORMAL) Hemoglobin A1c (05/06/2025 7:50 AM EST) Hemoglobin A1C 9.4(H) <6.5 % LAB CHEMISTRY METHOD 05/06/2025 1:42 PM EST [facility] Mean Bld Glu Estim. 223 mg/dL LAB CHEMISTRY METHOD 05/06/2025 1:42 PM EST [facility] Blood Venous blood specimen / Unknown Venipuncture / Unknown 05/06/2025 7:50 AM EST 05/06/2025 7:50 AM EST us Luis Jimenez MD LAB BLOOD ORDERABLES Final Resu lt [facility] [address] [place] [address], * (ABNORMAL) Comprehensive metabolic panel (05/06/2025 7:50 AM EST) Only the most recent of2 resultswithin the time period is included. Sodium 136 133 - 145 mmol/L 05/06/2025 10:[address] [facility] Potassium 4.3 3.5 - 5.5 mmol/L 05/06/2025 10:[address] [facility] Chloride 98 96 - 110 mmol/L 05/06/2025 10:[address] [facility] CO2 31 21 - 32 mmol/L 05/06/2025 10:[address] [facility] Anion Gap 7 3 - 11 05/06/2025 10:[address] [facility] Glucose 250(H) 70 - 100 mg/dL 05/06/2025 10:[address] [facility] BUN 14 5 - 25 mg/dL 05/06/2025 10:[address] [facility] Creatinine 1.03 0.70 - 1.30 mg/dL 05/06/2025 10:[address] [facility] eGFR 81 >=60 mL/min/1. 73m2 05/06/2025 10:[address] [facility] Comment:Calculation based on the Chronic Kidney Disease Epidemiology Collaboration (CKD-EPI) equation refit without adjustment for race. BUN/Creatinine Ratio 13.6 05/06/2025 10:[address] [facility] Calcium 8.2(L) 8.5 - 10.5 mg/dL 05/06/2025 10:[address] [facility] AST (SGOT) 18 10 - 42 unit/L 05/06/2025 10:[address] [facility] ALT (SGPT) 26 10 - 60 unit/L 05/06/2025 10:[address] [facility] Alkaline Phosphatase 232(H) 42 - 121 unit/L 05/06/2025 10:[address] [facility] Total Protein 7.0 6.0 - 8.0 g/dL 05/06/2025 10:[address] [facility] Albumin 4.1 3.2 - 5.0 g/dL 05/06/2025 10:[address] [facility] Total Bilirubin 0.8 0.0 - 1.4 mg/dL 05/06/2025 10:[address] [facility] Blood Venous blood specimen / Unknown Venipuncture / Unknown 05/06/2025 7:50 AM EST 05/06/2025 7:50 AM EST us Luis Jimenez MD LAB BLOOD ORDERABLES Final Resu lt [facility] [address] [place] [address], [place] [phone] * ECG-Annotated (03/30/2025) us Provider Onbase MD ECG ORDERABLES Final Result * Troponin I high sensitivity (03/29/2025 11:34 AM EDT) Only the most recent of2 resultswithin the time period is included. High Sensitivity Troponin I 5 <=79 ng/L LAB CHEMISTRY METHOD 03/29/2025 12:36 PM EDT [facility] Blood Venous blood specimen / Unknown Venipuncture / Unknown 03/29/2025 11:34 AM EDT 03/29/2025 12:32 PM EDT Narrative [facility] - 03/29/2025 12:36 PM EDT High levels of biotin in samples may falsely decrease hsTroponin values. Use caution when interpreting hsTroponin results in patients taking biotin who exhibit renal impairment (eGFR <60) or in patients taking more than 20 mg/day of biotin. us Lee Trimble MD LAB BLOOD ORDERABLES Final Resul t Performing Organization Address [facility] Co de Phone Number [facility] [address] [place] [address], [place] [phone] * ECG 12 lead (03/29/2025 11:28 AM EDT) Only the most recent of2 resultswithin the time period is included. Ventricular Rate ECG 52 BPM GEMUSE Atrial Rate 52 BPM GEMUSE P-R Interval 148 ms GEMUSE QRS Duration 98 ms GEMUSE Q-T Interval 422 ms GEMUSE QTc 392 ms GEMUSE P Wave [place] 16 degrees GEMUSE R [place] 25 degrees GEMUSE T [place] 26 degrees GEMUSE ECG Interpretation Sinus bradycardia Otherwise normal ECG When compared with ECG of 29-MAR-2025 10:32, No significant change was found Confirmed by MD Corey, [place] ([id number]) on 03/30/2025 8:48:44 AM GEMUSE 03/29/2025 11:2 8 AM EDT 03/30/2025 8:48 AM EDT us Lee Trimble MD ECG ORDERABLES Final Result Performing Organization Address [facility] Co de Phone Number GEMUSE * XR Chest 2 Views (03/29/2025 10:55 AM EDT) Anatomical Region Laterality Modality Body Radiographic Jeny ging 03/29/2025 11:1 1 AM EDT Impressions 03/29/2025 11:13 AM EDT FINDINGS/IMPRESSION: Lungs are clear. No pleural effusion or pneumothorax. Cardiac silhouette is normal in size. Lucency in the left retrocardiac region, most likely a small hiatal hernia. Degenerative changes seen throughout the bones. -------- FINAL REPORT -------- Dictated By: MILTON BENNETT Dictated Date: 03/29/2025 11:11 ET Assigned Physician: MILTON BENNETT Reviewed and Electronically Signed By: MILTON BENNETT Signed Date: 03/29/2025 11:13 ET Workstation ID: [id number] Transcribed By: Self Edit Transcribed Date: 03/29/2025 11:11 ET Narrative 03/29/2025 11:13 AM EDT XR CHEST 2 VIEWS INDICATION: Pain TECHNIQUE: XR CHEST 2 VIEWS COMPARISON: 09/07/2022 Procedure Note Milton Bennett MD - 03/29/2025 XR CHEST 2 VIEWS INDICATION: Pain TECHNIQUE: XR CHEST 2 VIEWS COMPARISON: 09/07/2022 IMPRESSION: FINDINGS/IMPRESSION: Lungs are clear. No pleural effusion orpneumothorax. Cardiac silhouette is normal in size. Lucency in the leftretrocardiac region, most likely a small hiatal hernia. Degenerativechanges seen throughout the bones. -------- FINAL REPORT -------- Dictated By: MILTON BENNETT Dictated Date: 03/29/2025 11:11 ET Assigned Physician: MILTON BENNETT Reviewed and Electronically Signed By: MILTON BENNETT Signed Date: 03/29/2025 11:13 ET Workstation ID: [id number] Transcribed By: Self Edit Transcribed Date: 03/29/2025 11:11 ET Lee Trimble MD IM XR PROCEDURES Final Result * (ABNORMAL) CBC auto differential (03/29/2025 10:25 AM EDT) WBC 5.8 4.8 - 10.8 K/[facility] HEMETOLOGY METHOD 03/29/2025 10:34 AM EDT [facility] RBC 5.70(H) 4.50 - 5.50 M/mcL LAB HEMETOLOGY METHOD 03/29/2025 10:34 AM EDT [facility] Hemoglobin 14.5 13.5 - 17.5 g/dL LAB HEMETOLOGY METHOD 03/29/2025 10:34 AM [facility] Hematocrit 43.7 42.0 - 54.0 % LAB HEMETOLOGY METHOD 03/29/2025 10:34 AM [facility] MCV 77.2(L) 79.0 - 98.0 FL LAB HEMETOLOGY METHOD 03/29/2025 10:34 AM [facility] MCH 25.6(L) 27.0 - 32.0 pcg LAB HEMETOLOGY METHOD 03/29/2025 10:34 AM [facility] MCHC 33.2 32.0 - 37.0 g/dL LAB HEMETOLOGY METHOD 03/29/2025 10:34 AM [facility] RDW 12.8 11.0 - 15.0 % LAB HEMETOLOGY METHOD 03/29/2025 10:34 AM [facility] Platelets 194 130 - 400 K/mcL LAB HEMETOLOGY METHOD 03/29/2025 10:34 AM [facility] MPV 8.9 7.0 - 11.0 FL LAB HEMETOLOGY METHOD 03/29/2025 10:34 AM [facility] NRBC 0.0 <1.0 % LAB HEMETOLOGY METHOD 03/29/2025 10:34 AM [facility] NRBC Absolute 0.00 <0.10 K/mcL LAB HEMETOLOGY METHOD 03/29/2025 10:34 AM [facility] Neutrophils Relative 76.8 % LAB HEMETOLOGY METHOD 03/29/2025 10:34 AM [facility] Lymphocytes Relative 18.4 % LAB HEMETOLOGY METHOD 03/29/2025 10:34 AM [facility] Monocytes Relative 3.8 % LAB HEMETOLOGY METHOD 03/29/2025 10:34 AM [facility] Eosinophils Relative 0.3 % LAB HEMETOLOGY METHOD 03/29/2025 10:34 AM [facility] Basophils Relative 0.5 % LAB HEMETOLOGY METHOD 03/29/2025 10:34 AM [facility] Immature Granulocytes Relative 0.2 % LAB HEMETOLOGY METHOD 03/29/2025 10:34 AM T [facility] Neutrophils Absolute 4.43 1.50 - 7.00 K/mcL LAB HEMETOLOGY METHOD 03/29/2025 10:34 AM [facility] Lymphocytes Absolute 1.06 1.00 - 5.00 K/mcL LAB HEMETOLOGY METHOD 03/29/2025 10:34 AM [facility] Monocytes Absolute 0.22 0.20 - 1.00 K/mcL LAB HEMETOLOGY METHOD 03/29/2025 10:34 AM [facility] Eosinophils Absolute 0.02 0.00 - 0.50 K/mcL LAB HEMETOLOGY METHOD 03/29/2025 10:34 AM [facility] Basophils Absolute 0.03 0.00 - 0.20 K/mcL LAB HEMETOLOGY METHOD 03/29/2025 10:34 AM [facility] Immature Granulocytes Absolute 0.01 0.00 - 0.03 K/mcL LAB HEMETOLOGY METHOD 03/29/2025 10:34 AM [facility] Blood Venous blood specimen / Unknown Venipuncture / Unknown 03/29/2025 10:25 AM EDT 03/29/2025 10:31 AM EDT us Lee Trimble MD LAB BLOOD ORDERABLES Final Resul t [facility] [address] [place] [address], * B-type natriuretic peptide (03/29/2025 10:25 AM EDT) BNP 33 <=100 pcg/mL LAB CHEMISTRY METHOD 03/29/2025 11:08 AM EDT [facility] Blood Venous blood specimen / Unknown Venipuncture / Unknown 03/29/2025 10:25 AM EDT 03/29/2025 10:31 AM EDT us Lee Trimble MD LAB BLOOD ORDERABLES Final Resul t Performing Organization Address City/[facility]/ZIP Co de Phone Number [facility] [address] [place] [address], [place] [phone] * Magnesium (03/29/2025 10:25 AM EDT) Magnesium 2.0 1.9 - 2.6 mg/dL LAB CHEMISTRY METHOD 03/29/2025 11:15 AM EDT [facility] Blood Venous blood specimen / Unknown Venipuncture / Unknown 03/29/2025 10:25 AM EDT 03/29/2025 10:31 AM EDT us Lee Trimble MD LAB BLOOD ORDERABLES Final Resul t Performing Organization Address City/[facility]/ZIP Co de Phone Number [facility] [address] [place] [address], [place] [phone] * Lipase (03/29/2025 10:25 AM EDT) Lipase 20 13 - 75 unit/L LAB CHEMISTRY METHOD 03/29/2025 11:15 AM EDT [facility] Blood Venous blood specimen / Unknown Venipuncture / Unknown 03/29/2025 10:25 AM EDT 03/29/2025 10:31 AM EDT us Lee Trimble MD LAB BLOOD ORDERABLES Final Resul t [facility] [address] [place] [address], * Diabetes Foot Exam (04/06/2024) Pathologist [facility] Diabetes: Annual Foot Exam abstracted Historical Provider HEALTH MAINTENANCE Final Result * Diabetes Eye Exam (07/23/2023) Pathologist [facility] Diabetes: Annual Retina Eye Exam absstracted Historical Provider HEALTH MAINTENANCE Final Result * Hepatitis C Screening (05/24/2016) Pathologist [facility] Hepatitis C Screening abstracted Historical Provider MD HEALTH MAINTENANCE Final Result from Last 3 Months or Most Recently Relevant to Health Maintenance Insurance MEDICARE MEDICAID - [place] Care Teams Therapeutic Program Worker Relationship Specialty Start Date End Date Luis Jimenez MD [address] [place] [address] (work) PCP - General 06/28/09
--- OUTSIDE RECORDS SUMMARY | 2025-06-14 09:02 | XMS_ITS | Encounter Summary ---
Author Organization [facility] Address [address] [place] [address] Care Team Providers Care Professor Of Rhetoric Name Role Phone Luis Jimenez MD Primary Care Provider Encounter Details Date Type Department Care Team (Late Contact Info) Description 05/10/2025 Results Follow-Up Adult [address] [phone] Luis Jimenez MD [address] [place] [address] Social History Tobacco Use Types Packs/Day Years [...] AM EDT documented as of this encounter Ordered Prescriptions Prescription Sig Dispense Quantity Refills Last Filled Start Date End Date metFORMIN (GLUCOPHAGE) 500 mg tablet Take 1 tablet (500 mg total) by mouth 2 (two) times a day with meals. 180 each 1 05/10/2025 05/10/2026 documented in this encounter Plan of Treatment Upcoming Encounters Date Type Department Care Team (Late Contact Info) Description 09/19/2025 4:00 PM EDT Office Visit Adult Medicine [address] [phone] Luis Jimenez MD [address] [place] [address] 10/24/2025 1:30 PM EDT Office Visit Orthopedic Surgery - [place] [phone] [phone] Alexi Valdez, DPM [address] [address] documented as of this encounter Visit Diagnoses Not on filedocumented in this encounter Care Teams Professor Of Rhetoric Relationship Specialty Start Date End Date Luis Jimenez MD [address] [place] [address] PCP - General 06/28/09 documented as of this encounter
== END 2025-06-14 08:50 | disposition home or self-care (01) ==
PROVIDERS: PCP Internal Medicine; Visit Provider Physician Assistant
DX: J06.9 Acute upper respiratory infection, unspecified (principal)

== ENCOUNTER 2025-06-14 07:42 | Outpatient (REF) | payer MEDICARE, MEDICAID, SELFPAY ==
[2025-06-14 11:50] LABS: Resp Syncy Virus RNA Qual PCR NEGATIVE (Negative); SARS COV2 PCR INHOUSE NEGATIVE (Negative)
== END 2025-06-14 07:43 | disposition home or self-care (01) ==
LOC: HO.LNP 07:42
PROVIDERS: Visit Provider Physician Assistant
DX: J06.9 Acute upper respiratory infection, unspecified (principal); R09.89 Other specified symptoms and signs involving the circulatory and respiratory systems
CPT/HCPCS: 87637; 99212